=== PATIENT | female | born 1940 | race Caucasian/White ===

== ENCOUNTER → 2017-12-23 | Outpatient (CLI) | payer OTHER ==
[~2017-12-23] MED LIST: AMLO5TAB2 PO; ASPI-1181 PO; BISOPROL PO; ESTR0.5T; FENO145T37 PO; FURO20TA4 PO; LANS15CA17 PO; LEVO50TA11 PO; LOSA50TA37 PO; POTA10CA44 PO; PRAMPEXOLE PO; PRAV80TA21 PO; [UNRECOGNIZED DRUG - OTHER] PO
== END ==
LOC: RAH 14:29
PROVIDERS: ATTEND Internal Medicine Cardiovascular Disease
DX: M71.21 Synovial cyst of popliteal space [Baker], right knee (principal)
CPT/HCPCS: 93970

== ENCOUNTER → 2017-12-26 | Outpatient (CLI) | payer OTHER ==
[~2017-12-26] MED LIST changes: +REGADENOSON 0.4 MG/5 ML PF SYG IVP SCH
== END | disposition home or self-care (01) ==
LOC: SHCH 09:27
PROVIDERS: ATTEND Internal Medicine Cardiovascular Disease
DX: Z01.810 Encounter for preprocedural cardiovascular examination (principal); I25.10 Atherosclerotic heart disease of native coronary artery without angina pectoris; I10 Essential (primary) hypertension; I63.9 Cerebral infarction, unspecified
CPT/HCPCS: 78452; 93017; 93306; 96374; A9500 ×2; J2785

== ENCOUNTER → 2017-12-30 | Outpatient (CLI) | payer OTHER ==
[~2017-12-30] MED LIST changes: -REGADENOSON 0.4 MG/5 ML PF SYG IVP SCH
== END ==
LOC: RAH 09:35
PROVIDERS: ATTEND Physician Assistant Medical
DX: M41.84 Other forms of scoliosis, thoracic region (principal)
CPT/HCPCS: 71046

== ENCOUNTER 2018-01-09 11:50 | Day surgery (SDC) | payer OTHER ==
[2018-01-07 16:35] VITALS: BP 160/74
[~2018-01-09] VITALS: Ht 166.4 cm; Wt 75.3 kg
[2018-01-09] VITALS (15 sets, daily range): BP systolic 96–154; BP diastolic 41–75
[2018-01-09] MEDS ORDERED: LACTATED RINGERS 1000ML 1,000 ML IV ONE (12:08)
[2018-01-09] MEDS ORDERED: LIDOCAINE PF 2% 5ML ABBOJECT ONE (13:11)
[2018-01-09] MEDS ORDERED: PROPOFOL 10 MG/ML 20ML VIAL IV ONE (13:12)
[2018-01-09] MEDS ORDERED: MIDAZOLAM HCL 1 MG/ML 2ML VIAL ONE (13:12)
[2018-01-09] MEDS ORDERED: FENTANYL CITRATE PF 50 MCG/1 ML 2ML VIAL ONE (13:12)
[2018-01-09] MEDS ORDERED: BUPIVACAINE/PF 0.5% 30ML VIAL ONE (13:32)
[2018-01-09] MEDS ORDERED: EPINEPHRINE 1 MG/ML AMPULE ONE (13:32)
[2018-01-09] MEDS ORDERED: MEPERIDINE-PF 50 MG/ML SYG ONE (14:21)
[2018-01-09] MEDS ORDERED: KETOROLAC TROMETHAMINE 30MG/ML ONE (14:40)
[2018-01-09] MEDS ORDERED: OXYCODONE/ACETAMIN 5/325MG TAB PO PRN ×2 (16:00→16:15)
== END 2018-01-09 16:30 | disposition home or self-care (01) ==
LOC: DAH 11:50
PROVIDERS: ATTEND Orthopaedic Surgery Adult Reconstructive Orthopaedic Surgery
DX: S82.61XA Displaced fracture of lateral malleolus of right fibula, initial encounter for closed fracture (principal); X58.XXXA Exposure to other specified factors, initial encounter; Y93.89 Activity, other specified; Y92.89 Other specified places as the place of occurrence of the external cause; Y99.8 Other external cause status; E78.00 Pure hypercholesterolemia, unspecified; I10 Essential (primary) hypertension; G43.909 Migraine, unspecified, not intractable, without status migrainosus; M06.9 Rheumatoid arthritis, unspecified; Z85.818 Personal history of malignant neoplasm of other sites of lip, oral cavity, and pharynx
CPT/HCPCS: 27792; 36415; 73600; 73610; 85730; A4649 ×3; A4930 ×2; A6223; C1713 ×6; C1776; J0171; J1885; J2001; J2175; J2250; J2704; J3010; J3490; J7030; J7120; Q4050

== ENCOUNTER 2018-01-15 17:10 | Emergency (ER) | payer OTHER ==
[2018-01-15] MEDS ORDERED: HYDROCODONE/ACETAMINOPHEN 10/325 MG TAB ONE (19:18)
== END 2018-01-15 19:22 | disposition home or self-care (01) ==
LOC: EDH 17:10
DX: G89.18 Other acute postprocedural pain (principal); M25.571 Pain in right ankle and joints of right foot; R60.0 Localized edema; I10 Essential (primary) hypertension; M19.90 Unspecified osteoarthritis, unspecified site; Z85.828 Personal history of other malignant neoplasm of skin; Z87.891 Personal history of nicotine dependence
CPT/HCPCS: 73610; 93970

== ENCOUNTER → 2018-08-08 | Outpatient (CLI) | payer OTHER ==
[~2018-08-08] MED LIST changes: -AMLO5TAB2 PO; +AMLO5TAB7 PO; +LOSA50TA25 PO; -LOSA50TA37 PO
== END | disposition home or self-care (01) ==
LOC: RAH 09:35
PROVIDERS: ATTEND Internal Medicine Gastroenterology
DX: R13.10 Dysphagia, unspecified (principal); R49.9 Unspecified voice and resonance disorder
CPT/HCPCS: 74240

== ENCOUNTER → 2018-11-28 | Outpatient (CLI) | payer OTHER ==
[~2018-11-28] MED LIST changes: -AMLO5TAB7 PO; +AMLO5TAB9 PO; -LOSA50TA25 PO; +LOSA50TA64 PO
== END | disposition home or self-care (01) ==
LOC: RAH 15:51
PROVIDERS: ATTEND Internal Medicine Critical Care Medicine
DX: M47.812 Spondylosis without myelopathy or radiculopathy, cervical region (principal)
CPT/HCPCS: 72040

== ENCOUNTER → 2019-01-21 | Outpatient (CLI) | payer OTHER | END | disposition home or self-care (01) | LOC: RAH 13:47 | PROVIDERS: ATTEND Internal Medicine Critical Care Medicine | DX: M47.26 Other spondylosis with radiculopathy, lumbar region (principal); M48.061 Spinal stenosis, lumbar region without neurogenic claudication; M51.36 Other intervertebral disc degeneration, lumbar region | CPT/HCPCS: 72141 ==

== ENCOUNTER → 2019-05-13 | Outpatient (CLI) | payer OTHER | END | disposition home or self-care (01) | LOC: SHCH 10:05 | PROVIDERS: ATTEND Internal Medicine Cardiovascular Disease | DX: I65.23 Occlusion and stenosis of bilateral carotid arteries (principal); E78.00 Pure hypercholesterolemia, unspecified; I10 Essential (primary) hypertension | CPT/HCPCS: 93880; 93925 ==

== ENCOUNTER → 2020-04-07 | Outpatient (CLI) | payer OTHER ==
[~2020-04-07] MED LIST changes: +FENO145T26 PO; -FENO145T37 PO
== END | disposition home or self-care (01) ==
LOC: RAH 10:37
PROVIDERS: ATTEND Emergency Medicine
DX: K80.80 Other cholelithiasis without obstruction (principal)
CPT/HCPCS: 78226; A9537

== ENCOUNTER 2020-05-18 06:16 | Day surgery (SDC) | payer OTHER ==
[2020-05-17 10:09] VITALS: BP 169/72; PULSE 60; RESP 16; TEMP 97.2
--- NOTE | 2020-05-17 12:01 | NUR ---
report called dr yancey's office and informed of abnormal labs was instructed to fax and md martinez reveiw and call if any new orders. labs faxed to
[2020-05-18] VITALS (22 sets, daily range): BP systolic 111–145; BP diastolic 53–89; PULSE 63–77; RESP 13–18; TEMP 97.3–98.2
[~2020-05-18] VITALS: Ht 167.6 cm; Wt 73.3 kg
[~2020-05-18 06:16] MED LIST changes: -AMLO5TAB9 PO; -ASPI-1181 PO; -BISOPROL PO; +CEFAZOLIN SODIUM 1 GM VIAL IVP SCH; -ESTR0.5T; -FENO145T26 PO; -FURO20TA4 PO; -LANS15CA17 PO; -LEVO50TA11 PO; -LOSA50TA64 PO; -POTA10CA44 PO; -PRAMPEXOLE PO; -PRAV80TA21 PO; -[UNRECOGNIZED DRUG - OTHER] PO
[2020-05-18] MEDS ORDERED: SODIUM CHLORIDE 0.9% 1000ML 1,000 ML IV ONE (06:22)
[2020-05-18] MEDS ORDERED: BUPIVACAINE/EPI/PF 0.5% 30ML VIAL IJ ONE (07:12)
[2020-05-18] MEDS ORDERED: SUCCINYLCHOLINE CHLORIDE 20 MG/ML 10 ML VIAL ONE (07:16)
[2020-05-18] MEDS ORDERED: LIDOCAINE PF 2% 5ML ABBOJECT ONE (07:16)
[2020-05-18] MEDS ORDERED: ROCURONIUM 10MG/1ML SYR 10 MG/ML ML ONE (07:16)
[2020-05-18] MEDS ORDERED: PROPOFOL 10 MG/ML 20ML VIAL IV ONE (07:16)
[2020-05-18] MEDS ORDERED: FENTANYL CITRATE PF 50 MCG/1 ML 2ML VIAL ONE (07:16)
[2020-05-18] MEDS ORDERED: PHENYLEPHRINE HCL 10 MG/ML 1ML VIAL IV ONE (07:17)
[2020-05-18] MEDS ORDERED: KETAMINE 50MG/ML SYRINGE 50 MG/ML DISP.SYRIN IV ONE (07:22)
[2020-05-18] MEDS ORDERED: DEXAMETHASONE SOD PHOSPHATE 10MG/ML 1ML VIAL ONE (07:53)
[2020-05-18] MEDS ORDERED: ONDANSETRON HCL 4 MG/2 ML VIAL ONE (07:53)
[2020-05-18] MEDS ORDERED: NEOSTIGMINE 5MG/5ML SYR IV ONE (07:54)
[2020-05-18] MEDS ORDERED: GLYCOPYRROLATE 1 MG/5 ML SYRINGE ONE (07:54)
[2020-05-18] MEDS ORDERED: IOHEXOL-350 50ML VIAL IV ONE (07:55)
[2020-05-18] MEDS ORDERED: EPHEDRINE SULFATE 50 MG/ML AMPULE ONE (08:00)
[2020-05-18] MEDS ORDERED: MEPERIDINE-PF 25 MG/ML SYG ONE ×2 (09:00→09:09)
[2020-05-18] MEDS ORDERED: TRAMADOL HCL 50 MG TABLET PO SCH (10:30)
[2020-05-18] MEDS ORDERED: TRAMADOL HCL 50 MG TABLET ONE (10:33)
== END 2020-05-18 11:20 | disposition home or self-care (01) ==
LOC: DAH 06:16
PROVIDERS: ATTEND Surgery
DX: K80.10 Calculus of gallbladder with chronic cholecystitis without obstruction (principal); K82.8 Other specified diseases of gallbladder; I10 Essential (primary) hypertension; M19.90 Unspecified osteoarthritis, unspecified site; E78.00 Pure hypercholesterolemia, unspecified; E78.5 Hyperlipidemia, unspecified; I34.0 Nonrheumatic mitral (valve) insufficiency; Z85.43 Personal history of malignant neoplasm of ovary; Z86.79 Personal history of other diseases of the circulatory system; Z79.899 Other long term (current) drug therapy; Z88.8 Allergy status to other drugs, medicaments and biological substances; Z87.891 Personal history of nicotine dependence; Z98.890 Other specified postprocedural states; Z90.49 Acquired absence of other specified parts of digestive tract; Z90.710 Acquired absence of both cervix and uterus; Z98.51 Tubal ligation status; Z79.890 Hormone replacement therapy; Z11.59 Encounter for screening for other viral diseases
CPT/HCPCS: 36415; 47563; 74300; 80048; 85025; 88304; A4215 ×2; A4221; A4222; A4223; A4600; A4649 ×3; A4657; A4663; A4930; A6260; C1758; C1769 ×4; G0168; J0330; J0690; J1100; J2001; J2175 ×2; J2370; J2405; J2704; J2710; J3010; J3490 ×4; J7030 ×3; Q9967; U0003

== ENCOUNTER → 2020-08-09 | Outpatient (CLI) | payer OTHER ==
[~2020-08-09] MED LIST changes: +ACET-2027 PO; +AMLO5TAB9 PO; +ASPI-1443 PO; +ATOR10 PO; +BISO5TAB19 PO; +CALC-933 PO; -CEFAZOLIN SODIUM 1 GM VIAL IVP SCH; +CROM40SP12 NS; +ESTR0.5T; +FENO145T26 PO; +FEXO1TAB5 PO; +GLUC-268 PO; +LEVO50TA11 PO; +LOSA50TA64 PO; +MV-M1TAB57 PO; +OMEP20CA12 PO; +POLY500P31 MC; +POTA10CA44 PO; +TIZA2CAP9 PO; +UBID50CA23 PO; +[UNRECOGNIZED DRUG - OTHER] PO; +tumeric
== END | disposition home or self-care (01) ==
LOC: SHCH 11:31
PROVIDERS: ATTEND Internal Medicine Cardiovascular Disease
DX: I10 Essential (primary) hypertension (principal)
CPT/HCPCS: 93306; 93356

== ENCOUNTER → 2020-09-23 | Outpatient (CLI) | payer OTHER ==
[~2020-09-23] MED LIST changes: +AMLO-257 PO; -AMLO5TAB9 PO
== END | disposition home or self-care (01) ==
LOC: RAH 10:59
PROVIDERS: ATTEND Emergency Medicine
DX: N64.52 Nipple discharge (principal); N64.4 Mastodynia; R92.8 Other abnormal and inconclusive findings on diagnostic imaging of breast
CPT/HCPCS: 77066

== ENCOUNTER 2022-02-12 09:41 | Day surgery (SDC) | payer OTHER ==
[2022-02-08 14:15] VITALS: BP_SYST 200; BP_SYST 213; BP_DIAS 78; BP_DIAS 83
[2022-02-08 14:27] LABS: EOSINOPHILS % (AUTO) 4.4 % (0.0-8.0); HEMATOCRIT 39.8 % (36-48); LYMPHOCYTES % (AUTO) 25.8 % (21.0-51.0); MEAN CORPUSCULAR HEMOGLOBIN 31.5 pg (27.0-33.0); MEAN CORPUSCULAR HGB CONC 32.2 g/dL (32.0-36.0); MONOCYTES % (AUTO) 8.6 % (3.0-13.0); NEUTROPHILS % (AUTO) 59.9 % (40.0-77.0); PLATELET COUNT (AUTO) 229 K/uL (130-400); RED BLOOD CELL COUNT(AUTO) 4.06 MIL/uL (4.00-5.50); WHITE BLOOD COUNT (AUTO) 5.9 K/uL (4.8-10.8)
[2022-02-08 14:28] LABS: APPEARANCE,URINE Clear (CLEAR); BILIRUBIN,URINE Negative (NEGATIVE); COLOR,URINE Yellow (YELLOW); GLUCOSE, URINE (UA) Negative (NEGATIVE); KETONES,URINE Negative (NEGATIVE); LEUKOCYTE ESTERASE ,URINE Trace (NEGATIVE); NITRATE,URINE Negative (NEGATIVE); OCCULT BLOOD,URINE Negative (NEGATIVE); PH,URINE 7.5 (5.0-8.0); PROTEIN,URINE Negative (NEGATIVE); UROBILINOGEN,URINE 0.2 mg/dL (0.2-1.0)
[2022-02-08 14:36] LABS: POTASSIUM 3.5 mmol/L (3.5-5.1)
[2022-02-08 14:40] LABS: INR 1.05 (0.85-1.15); PROTHROMBIN TIME 11.4 SEC (9.6-11.6)
[2022-02-08 14:41] LABS: PARTIAL THROMBOPLASTIN TIME 26.2 SEC (26.3-35.5)
[2022-02-08 14:42] LABS: BACTERIA,URINE Few /HPF (None Seen); RBC,URINE 0-1 /HPF (0-1); SQUAMOUS EPITHELIAL CELL,UR Rare /HPF (0-2)
[~2022-02-12] VITALS: Ht 166.4 cm; Wt 74.8 kg
[2022-02-12] VITALS (10 sets, daily range): BP systolic 130–207; BP diastolic 57–88
[~2022-02-12 09:41] MED LIST changes: +0.9%NACL 1000ML 1,000 ML IV SCH; +CILO50TA PO; -CROM40SP12 NS; -ESTR0.5T; +ESTR0.5T PO; -FEXO1TAB5 PO; +FLUT16H NS; +MAGN200T4 PO; -POTA10CA44 PO; +TRAM50TA4 PO; +TUMERIC CURCUMIN PO; -tumeric
[2022-02-12] MEDS ORDERED: LIDOCAINE HCL 400MG/20ML VIAL ONE (11:38)
[2022-02-12] MEDS ORDERED: HEPARIN 10,000 UNIT/10ML (1,000 UNIT/ML) VIAL ONE (11:44)
[2022-02-12] MEDS ORDERED: NICARDIPINE 25MG INJ IV ONE (11:44)
[2022-02-12] MEDS ORDERED: NITROGLYCERIN 50MG VIAL ONE (11:44)
[2022-02-12] MEDS ORDERED: IODIXANOL 320 MG/ML 100 ML VIAL ONE (11:44)
[2022-02-12] MEDS ORDERED: FENTANYL CITRATE PF 50 MCG/1 ML 2ML VIAL ONE ×2 (11:45→13:04)
[2022-02-12] MEDS ORDERED: MIDAZOLAM HCL 1 MG/ML 2ML VIAL ONE ×2 (11:45→12:30)
[2022-02-12] MEDS ORDERED: LABETALOL 20MG VIAL IV ONE (13:09)
[2022-02-12] MEDS ORDERED: 0.9%NACL 1000ML 1,000 ML IV SCH (13:30)
[2022-02-12] MEDS ORDERED: DEXTROSE 50%-WATER 50 ML DISP.SYRIN IV PRN (13:30)
[2022-02-12] MEDS ORDERED: GLUCAGON 1MG KIT 1 MG ML IM PRN (13:30)
[2022-02-12] MEDS ORDERED: NITROGLYCERIN 0.4 MG SL TAB SL PRN (13:30)
[2022-02-12] MEDS ORDERED: CLOPIDOGREL 300MG TAB ONE (13:36)
== END 2022-02-12 18:40 | disposition home or self-care (01) ==
LOC: DAH 09:41
PROVIDERS: ATTEND Internal Medicine Cardiovascular Disease
DX: I70.213 Atherosclerosis of native arteries of extremities with intermittent claudication, bilateral legs (principal); I10 Essential (primary) hypertension; Z79.01 Long term (current) use of anticoagulants; Z98.890 Other specified postprocedural states; Z79.899 Other long term (current) drug therapy
CPT/HCPCS: 36415; 37226; 75625; 75716; 75774; 80048; 81001; 85025; 85610; 85730; 93005; A4215; A4216; A4221; A4222; A4223 ×3; A4606; A4663; C1769 ×2; C1876; C1887; C1893; C1894 ×2; C2623; J1644 ×2; J2250 ×2; J3010; J3490 ×3; J7030; Q9967; 99156; 99157

== ENCOUNTER 2022-02-13 22:47 | Emergency (ER) | payer OTHER ==
[~2022-02-13] VITALS: Ht 165.1 cm; Wt 74.8 kg
[~2022-02-13 22:47] MED LIST changes: -0.9%NACL 1000ML 1,000 ML IV SCH
[2022-02-13 23:31] LABS: BASOPHILS % (AUTO) 0.6 % (0.0-5.0); EOSINOPHILS % (AUTO) 3.4 % (0.0-8.0); HEMATOCRIT 33.6 % (36-48); LYMPHOCYTES % (AUTO) 20.2 % (21.0-51.0); MEAN CORPUSCULAR HEMOGLOBIN 31.8 pg (27.0-33.0); MEAN CORPUSCULAR HGB CONC 32.7 g/dL (32.0-36.0); MEAN CORPUSCULAR VOLUME 97.1 fL (79-99); MONOCYTES % (AUTO) 10.5 % (3.0-13.0); NEUTROPHILS % (AUTO) 64.9 % (40.0-77.0); PLATELET COUNT (AUTO) 190 K/uL (130-400); RED BLOOD CELL COUNT(AUTO) 3.46 MIL/uL (4.00-5.50); RED CELL DISTRIBUTION WIDTH 13.3 % (11.0-15.5); WHITE BLOOD COUNT (AUTO) 6.7 K/uL (4.8-10.8)
[2022-02-13 23:39] LABS: POTASSIUM 3.8 mmol/L (3.5-5.1)
[2022-02-13 23:44] LABS: ALBUMIN 3.8 g/dL (3.5-5.0); BILIRUBIN,TOTAL 0.5 mg/dL (0.2-1.0); TOTAL PROTEIN, SERUM 7.2 g/dL (6.0-8.3)
[2022-02-14 00:22] VITALS: BP 148/66
== END 2022-02-14 02:46 | disposition home or self-care (01) ==
LOC: EDH 22:47
DX: S30.1XXA Contusion of abdominal wall, initial encounter (principal); R10.31 Right lower quadrant pain; E78.00 Pure hypercholesterolemia, unspecified; I10 Essential (primary) hypertension; Z88.8 Allergy status to other drugs, medicaments and biological substances; Z79.899 Other long term (current) drug therapy; Z79.82 Long term (current) use of aspirin; Z98.890 Other specified postprocedural states; X58.XXXA Exposure to other specified factors, initial encounter; Y93.89 Activity, other specified; Y92.89 Other specified places as the place of occurrence of the external cause; Y99.8 Other external cause status
CPT/HCPCS: 36415; 74176; 80053; 84484; 85025

== ENCOUNTER 2022-04-19 06:52 | Day surgery (SDC) | payer OTHER ==
[2022-04-17 13:30] LABS: BASOPHILS % (AUTO) 1.1 % (0.0-5.0); EOSINOPHILS % (AUTO) 4.8 % (0.0-8.0); HEMATOCRIT 37.8 % (36-48); LYMPHOCYTES % (AUTO) 18.1 % (21.0-51.0); MEAN CORPUSCULAR HEMOGLOBIN 31.2 pg (27.0-33.0); MEAN CORPUSCULAR HGB CONC 32.8 g/dL (32.0-36.0); MEAN CORPUSCULAR VOLUME 95.2 fL (79-99); MONOCYTES % (AUTO) 10.7 % (3.0-13.0); NEUTROPHILS % (AUTO) 64.9 % (40.0-77.0); PLATELET COUNT (AUTO) 228 K/uL (130-400); RED BLOOD CELL COUNT(AUTO) 3.97 MIL/uL (4.00-5.50); WHITE BLOOD COUNT (AUTO) 5.6 K/uL (4.8-10.8)
[2022-04-17 13:40] LABS: POTASSIUM 4.7 mmol/L (3.5-5.1)
[2022-04-17 13:42] LABS: INR 0.99 (0.85-1.15); PROTHROMBIN TIME 10.8 SEC (9.6-11.6)
[2022-04-17 13:42] LABS: APPEARANCE,URINE Cloudy (CLEAR); BILIRUBIN,URINE Negative (NEGATIVE); COLOR,URINE Yellow (YELLOW); GLUCOSE, URINE (UA) Negative (NEGATIVE); KETONES,URINE Negative (NEGATIVE); LEUKOCYTE ESTERASE ,URINE Moderate (NEGATIVE); NITRATE,URINE Negative (NEGATIVE); OCCULT BLOOD,URINE Negative (NEGATIVE); PH,URINE 7.5 (5.0-8.0); PROTEIN,URINE Negative (NEGATIVE)
[2022-04-17 13:43] LABS: PARTIAL THROMBOPLASTIN TIME 24.5 SEC (26.3-35.5)
[2022-04-17 14:11] LABS: BACTERIA,URINE Many /HPF (None Seen); RBC,URINE None Seen /HPF (0-1)
[2022-04-17 14:16] LABS: B-TYPE NATRIURETIC PEPTIDE 233 pg/mL (0-100)
[2022-04-19] VITALS (17 sets, daily range): BP systolic 88–197; BP diastolic 44–90
[~2022-04-19] VITALS: Ht 165.1 cm; Wt 75.4 kg
[~2022-04-19 06:52] MED LIST changes: +0.9% NACL 500ML IV.SOLN 500 ML IV SCH; -ACET-2027 PO; -ATOR10 PO; -CILO50TA PO; +CLOP75TA14 PO; -ESTR0.5T PO; +ESTR1PAT87 TD; -FLUT16H NS; -GLUC-268 PO; +MULT-1192 PO; +NABU-143 PO; -POLY500P31 MC; -TUMERIC CURCUMIN PO; -UBID50CA23 PO; -[UNRECOGNIZED DRUG - OTHER] PO; +tylenol PO
[2022-04-19] MEDS ORDERED: 0.9%NACL 1000ML 1,000 ML IV ONE (08:14)
[2022-04-19] MEDS ORDERED: NITROGLYCERIN 50MG VIAL ONE (08:31)
[2022-04-19] MEDS ORDERED: MIDAZOLAM HCL 1 MG/ML 2ML VIAL ONE ×2 (08:31→09:19)
[2022-04-19] MEDS ORDERED: IOHEXOL 350 MG/ML 100ML INFUS..BTL IV ONE (08:31)
[2022-04-19] MEDS ORDERED: BIVALIRUDIN 250 MG/VIAL IV ONE (08:31)
[2022-04-19] MEDS ORDERED: FENTANYL CITRATE PF 50 MCG/1 ML 2ML VIAL ONE ×2 (08:31→09:45)
[2022-04-19] MEDS ORDERED: LIDOCAINE HCL 400MG/20ML VIAL ONE (08:32)
[2022-04-19] MEDS ORDERED: HEPARIN 10,000 UNIT/10ML (1,000 UNIT/ML) VIAL ONE (08:51)
[2022-04-19] MEDS ORDERED: ASPIRIN 81 MG EC TAB PO SCH (09:00)
[2022-04-19] MEDS ORDERED: CLOPIDOGREL 75MG TAB PO SCH (09:00)
[2022-04-19] MEDS ORDERED: IOHEXOL-350 75 ML VIAL IV ONE (09:56)
[2022-04-19] MEDS ORDERED: HYDRALAZINE 20MG/ML VIAL IV PRN (11:00)
[2022-04-19] MEDS ORDERED: 0.9%NACL 1000ML 1,000 ML IV SCH (11:00)
[2022-04-19] MEDS ORDERED: ACETAMINOPHEN WITH CODEINE 1 TAB TAB PO PRN (11:00)
[2022-04-19] MEDS ORDERED: DEXTROSE 50%-WATER 50 ML DISP.SYRIN IV PRN (11:00)
[2022-04-19] MEDS ORDERED: GLUCAGON 1MG KIT 1 MG ML IM PRN (11:00)
[2022-04-19] MEDS ORDERED: NITROGLYCERIN 0.4 MG SL TAB SL PRN (11:00)
[2022-04-19] MEDS ORDERED: METOPROLOL TARTRATE 1 MG/ML 5ML VIAL IV PRN (11:00)
== END 2022-04-19 17:00 | disposition home or self-care (01) ==
LOC: DAH 06:52
PROVIDERS: ATTEND Internal Medicine Cardiovascular Disease
DX: I70.211 Atherosclerosis of native arteries of extremities with intermittent claudication, right leg (principal); I25.119 Atherosclerotic heart disease of native coronary artery with unspecified angina pectoris; I34.0 Nonrheumatic mitral (valve) insufficiency; I10 Essential (primary) hypertension; E66.3 Overweight; E03.9 Hypothyroidism, unspecified; E78.5 Hyperlipidemia, unspecified; Z68.26 Body mass index [BMI] 26.0-26.9, adult; Z90.49 Acquired absence of other specified parts of digestive tract; Z90.710 Acquired absence of both cervix and uterus; Z90.89 Acquired absence of other organs; Z98.890 Other specified postprocedural states; Z72.89 Other problems related to lifestyle; Z79.899 Other long term (current) drug therapy; Z79.82 Long term (current) use of aspirin; Z79.01 Long term (current) use of anticoagulants
CPT/HCPCS: 36415; 37227; 75710; 75774; 80048; 81001; 82948; 83880; 85025; 85610; 85730; 87077; 87088; 87186; A4215; A4216; A4221; A4222; A4223 ×3; A4606; A4663; C1724; C1769 ×2; C1876; C1887; C1893; C1894 ×2; C2623; J0360 ×2; J0583; J1644 ×2; J2250 ×2; J3010 ×2; J3490 ×2; J7030; Q9967 ×2; 96360; 96361; 99156; 99157

== ENCOUNTER → 2022-06-26 | Outpatient (CLI) | payer OTHER ==
[~2022-06-26] MED LIST changes: -0.9% NACL 500ML IV.SOLN 500 ML IV SCH; -ASPI-1443 PO
== END | disposition home or self-care (01) ==
LOC: SHCH 13:38
PROVIDERS: ATTEND Internal Medicine Cardiovascular Disease
DX: I73.9 Peripheral vascular disease, unspecified (principal); I87.2 Venous insufficiency (chronic) (peripheral)
CPT/HCPCS: 93925; 93970

== ENCOUNTER 2023-07-02 18:15 | Emergency (ER) | payer OTHER ==
[~2023-07-02] VITALS: Ht 165.1 cm; Wt 74.8 kg
[~2023-07-02 18:15] MED LIST changes: +AEC81 PO; +ATOR40TA69 PO; -BISO5TAB19 PO; +CLOP-31 PO; -CLOP75TA14 PO; +GLUC-29 PO; +HYDR25 PO; +ISOS10TA8 PO; +LACT1CAP78 PO; +LEVO50CA4 PO; -LEVO50TA11 PO; +METO50TA9 PO; -NABU-143 PO; +NITR0.4T50 SL; +PRED20TA3 PO; +PREVAGEN; -TRAM50TA4 PO; +TUMERIC; +UBID200C18 PO; +VIT D; +[UNRECOGNIZED DRUG - OTHER]; +[UNRECOGNIZED DRUG - OTHER]; -tylenol PO
[2023-07-02 18:29] VITALS: BP 161/88; PULSE 65; RESP 16; O2SAT 96
[2023-07-02] MEDS ORDERED: ASPIRIN 325MG TAB PO ONE (23:30)
[2023-07-04] MEDS ORDERED: FLUT50BL IH (19:00)
[2023-07-04] MEDS ORDERED: MECO10005 PO (19:02)
[2023-07-05] MEDS ORDERED: UBID200C18 PO (01:26)
[2023-07-05] MEDS ORDERED: HYDR-4153 PO (01:26)
[2023-07-05] MEDS ORDERED: ATOR40TA71 PO (01:26)
[2023-07-05] MEDS ORDERED: TRAM50TA4 PO (01:26)
== END 2023-07-02 23:54 | disposition home or self-care (01) ==
LOC: EDH 18:15
DX: I73.9 Peripheral vascular disease, unspecified (principal); E78.00 Pure hypercholesterolemia, unspecified; I10 Essential (primary) hypertension; Z79.02 Long term (current) use of antithrombotics/antiplatelets; Z79.52 Long term (current) use of systemic steroids; Z79.82 Long term (current) use of aspirin; Z79.890 Hormone replacement therapy; Z79.899 Other long term (current) drug therapy; Z88.8 Allergy status to other drugs, medicaments and biological substances; Z90.49 Acquired absence of other specified parts of digestive tract
CPT/HCPCS: 99282

== ENCOUNTER → 2023-08-27 | Outpatient (CLI) | payer OTHER ==
[~2023-08-27] MED LIST changes: +ATOR40TA71 PO; +FLUT50BL IH; +HYDR-4153 PO; -HYDR25 PO; +MECO10005 PO; -PRED20TA3 PO; +TRAM50TA4 PO; -TUMERIC
[2023-08-27 16:45] LABS: CREATININE 0.9 mg/dL (0.5-1.5); POTASSIUM 3.7 mmol/L (3.5-5.1)
== END | disposition home or self-care (01) ==
LOC: LAB 11:47
PROVIDERS: ATTEND Internal Medicine Cardiovascular Disease
DX: I10 Essential (primary) hypertension (principal)
CPT/HCPCS: 36415; 80048

== ENCOUNTER → 2023-08-31 | Outpatient (CLI) | payer OTHER | END | disposition home or self-care (01) | LOC: SHCH 12:57 | PROVIDERS: ATTEND Internal Medicine Cardiovascular Disease | DX: I87.2 Venous insufficiency (chronic) (peripheral) (principal); I73.9 Peripheral vascular disease, unspecified | CPT/HCPCS: 93925; 93970 ==

== ENCOUNTER → 2023-09-19 | Outpatient (CLI) | payer OTHER ==
[~2023-09-19] MED LIST changes: +IOHEXOL 350 MG/ML 100ML INFUS..BTL IV ONE; +METOPROLOL TARTRATE 1 MG/ML 5ML VIAL IV ONE
== END | disposition home or self-care (01) ==
LOC: RAH 08:57
PROVIDERS: ATTEND Internal Medicine Cardiovascular Disease
DX: I25.119 Atherosclerotic heart disease of native coronary artery with unspecified angina pectoris (principal); R94.31 Abnormal electrocardiogram [ECG] [EKG]
CPT/HCPCS: 75574; J3490; Q9967

== ENCOUNTER → 2024-01-30 | Outpatient (CLI) | payer OTHER | END | disposition home or self-care (01) | LOC: RAH 09:52 | PROVIDERS: ATTEND Internal Medicine Cardiovascular Disease | DX: I73.9 Peripheral vascular disease, unspecified (principal); I87.2 Venous insufficiency (chronic) (peripheral); I10 Essential (primary) hypertension; E78.5 Hyperlipidemia, unspecified; R00.1 Bradycardia, unspecified; Z79.899 Other long term (current) drug therapy | CPT/HCPCS: 93925; 93970 ==

== ENCOUNTER → 2024-02-05 | Outpatient (CLI) | payer OTHER | END | disposition home or self-care (01) | LOC: RAH 12:49 | PROVIDERS: ATTEND Physician Assistant Medical | DX: L97.509 Non-pressure chronic ulcer of other part of unspecified foot with unspecified severity (principal) | CPT/HCPCS: 78315; A9503 ==

== ENCOUNTER → 2024-03-19 | Outpatient (CLI) | payer OTHER | END | disposition home or self-care (01) | LOC: SHCH 11:09 | PROVIDERS: ATTEND Internal Medicine Cardiovascular Disease | DX: I08.3 Combined rheumatic disorders of mitral, aortic and tricuspid valves (principal); I10 Essential (primary) hypertension; E78.5 Hyperlipidemia, unspecified; Z95.1 Presence of aortocoronary bypass graft | CPT/HCPCS: 93306 ==

== ENCOUNTER → 2024-06-01 | Outpatient (CLI) | payer OTHER | END | disposition home or self-care (01) | LOC: SHCH 09:04 | PROVIDERS: ATTEND Internal Medicine Cardiovascular Disease | DX: I70.202 Unspecified atherosclerosis of native arteries of extremities, left leg (principal) | CPT/HCPCS: 93925 ==

== ENCOUNTER → 2024-08-26 | Outpatient (CLI) | payer OTHER ==
[~2024-08-26] MED LIST changes: -AMLO-257 PO; +AMLO-258 PO; -ATOR40TA71 PO; +BISO5TAB19 PO; -CALC-933 PO; -CLOP-31 PO; +CLOP75TA32 PO; -ESTR1PAT87 TD; +FAMO20TA8 PO; -FENO145T26 PO; -FLUT50BL IH; +FURO40TA5 PO; -GLUC-29 PO; -HYDR-4153 PO; -IOHEXOL 350 MG/ML 100ML INFUS..BTL IV ONE; -ISOS10TA8 PO; +ISOS20TA85 PO; -LACT1CAP78 PO; -MAGN200T4 PO; -MECO10005 PO; +MELA5TAB66 PO; -METO50TA9 PO; -METOPROLOL TARTRATE 1 MG/ML 5ML VIAL IV ONE; -MULT-1192 PO; -MV-M1TAB57 PO; -NITR0.4T50 SL; -OMEP20CA12 PO; +PANT40GR PO; +POLY500P31 MC; +PREG50CA64 PO; -PREVAGEN; +ROPI1TAB46 PO; +TIZA-194 PO; -TIZA2CAP9 PO; -TRAM50TA4 PO; -UBID200C18 PO; -VIT D; +VITAD50000 PO; -[UNRECOGNIZED DRUG - OTHER]; -[UNRECOGNIZED DRUG - OTHER]
== END | disposition home or self-care (01) ==
LOC: SHCH 09:51
PROVIDERS: ATTEND Internal Medicine Cardiovascular Disease
DX: I73.9 Peripheral vascular disease, unspecified (principal); I71.40 Abdominal aortic aneurysm, without rupture, unspecified
CPT/HCPCS: 93925; 93978

== ENCOUNTER 2024-11-16 14:07 | Emergency (ER) | payer OTHER ==
[~2024-11-16] VITALS: Ht 160 cm; Wt 77.1 kg
[~2024-11-16 14:07] MED LIST changes: +ISOS-58 PO; -ISOS20TA85 PO
--- NOTE | 2024-11-16 14:40 | ERN ---
ED Note History of Present Illness Stated Complaint: LEFT LEG PAIN Chief Complaint: Lower Extremity Pain/Injury Time Seen by MD: 14:18 Dictation: PATIENT IS AN 84-YEAR-OLD FEMALE COMING IN TODAY WITH COMPLAINTS OF HAVING CLAUDICATION AND LEFT CALF PAIN SHE HAS HAD FOR 3-4 DAYS. SHE STATES IT IS WORSE WHEN SHE WALKS SEVERAL STEPS. STATES SHE HAS ALREADY HAD PRIOR STENTS AND ANGIOPLASTY LAST STENT WAS PLACED BY DR. FELDMAN LAST YEAR. LEG IS WARM TO TOUCH HOWEVER DISTAL PULSES NOT PALPABLE AT THIS TIME. NO CYANOSIS Allergies: Coded Allergies: MARCOS Inhibitors (Unverified Allergy, Mild, cough, 05/17/20) gabapentin (Unverified Allergy, Unknown, 01/19/23) Home Meds Active Scripts Apixaban (Eliquis) 2.5 Mg Tablet, 1 TAB PO BID for 30 Days, #60 TAB 0 Refills Prov:SUHA HERNANDEZ 11/20/24 Furosemide (Furosemide) 40 Mg Tablet, 40 MG PO DAILY, #30 TAB Prov:RYLEE ESCOBAR MD 08/19/24 Losartan Potassium (Losartan Potassium) 50 Mg Tablet, 50 MG PO DAILY, #30 TAB Prov:RYLEE ESCOBAR MD 08/19/24 Reported Medications Polyethylene Glycol 3350 (Miralax) 17 Gram Powd.pack, 1 PACKET PO DAILY for constipation for 2 Days, #2 PACKET 0 Refills dissolve in water 11/18/24 Hydralazine HCl (Apresoline) 10 Mg Tab, 10 MG PO DAILYDINNER 11/18/24 Metoprolol Succinate (Metoprolol Succinate) 25 Mg Tab.er.24h, 12.5 MG PO DAILY 11/18/24 Fenofibrate Nanocrystallized (Fenofibrate) 48 Mg Tablet, 1 TAB PO DAILYDINNER for 30 Days, #30 TAB 0 Refills 11/18/24 Ropinirole HCl (Ropinirole HCl) 1 Mg Tablet, 1 TAB PO BID for 30 Days, #30 TAB 0 Refills 11/18/24 Melatonin (Melatonin) 5 Mg Tablet, 15 MG PO HSPRN PRN for SLEEP, TAB 08/15/24 Tizanidine HCl (Tizanidine HCl) 2 Mg Tablet, 2 MG PO HS, TAB 08/14/24 Cholecalciferol (Vitamin D3) 1,250 Mcg (89618 Unit) Cap, 22577 UNITS PO QWEEK, CAP Fridays08/14/24 Famotidine (Famotidine) 20 Mg Tablet, 20 MG PO DAILYDINNER, TAB 08/14/24 Aspirin (ASPIRIN 81 MG ECTAB) 81 Mg Ectab, 81 MG PO DAILYDINNER, TAB.EC 08/14/24 Amlodipine Besylate (Amlodipine Besylate) 10 Mg Tablet, 10 MG PO DAILY for 30 Days, #30 TAB 0 Refills 08/14/24 Isosorbide Mononitrate (Isosorbide Mononitrate) 20 Mg Tablet, 20 MG PO BID, TAB 08/14/24 Clopidogrel Bisulfate (Clopidogrel) 75 Mg Tablet, 75 MG PO PCBKFST, TAB 08/14/24 Atorvastatin Calcium (LIPITOR) 40 Mg Tablet, 40 MG PO PCBKFST, TAB 08/14/24 Pantoprazole Sodium (Pantoprazole Sodium) 40 Mg Granpkt.dr, 40 MG PO ACBKFST, PACK 08/14/24 Levothyroxine Sodium (Levothyroxine) 50 Mcg Capsule, 50 MCG PO ACBKFST, CAP 08/14/24 Discontinued Reported Medications Ropinirole HCl (Ropinirole HCl) 1 Mg Tablet, 1 MG PO ACBKFST, TAB 08/15/24 Polyethylene Glycol 8000 (Polyethylene Glycol) 100 % Powder, 500 GM MC DAILY, APPL 08/14/24 Bisoprolol Fumarate (Bisoprolol Fumarate) 5 Mg Tablet, 5 MG PO PCBKFST, TAB 08/14/24 Ropinirole HCl (Ropinirole HCl) 1 Mg Tablet, 1 MG PO HS, TAB 08/14/24 Pregabalin (Pregabalin) 50 Mg Capsule, 50 MG PO BIDAC, CAP 08/14/24 Past Medical History Past Medical History: A-Fib, CAD, Heart Disease, Hypertension Additional Past Medical Hx: AAA Surgical History: CABG Surgical History Other: TIED KINKED BOWEL / WISDON TEETH / WIRE INTO TWO HAMMER TOES, CATARAT NICKY Family History: Negative Social History: Smokers, Negative History: Not Applicable RN Note Reviewed/Agreed w/PFSH: Yes Review of System Dictation CONSTITUTIONAL: NEGATIVE EXCEPT FOR HPI HEAD/FACE: NEGATIVE EXCEPT FOR HPI EENT: NEGATIVE EXCEPT FOR HPI RESPIRATORY: NEGATIVE EXCEPT FOR HPI GASTROINTESTINAL/ABDOMINAL: NEGATIVE EXCEPT FOR HPI GENITOURINARY: NEGATIVE EXCEPT FOR HPI MUSCULOSKELETAL: NEGATIVE EXCEPT FOR HPI LEFT CALF PAIN WITH CLAUDICATION INTEGUMENTARY: NEGATIVE EXCEPT FOR HPI NEUROLOGICAL/PSYCH: NEGATIVE EXCEPT FOR HPI HEMATOLOGIC/LYMPHATIC: NEGATIVE EXCEPT FOR HPI ALL SYSTEMS NEGATIVE, EXCEPT NOTED ABOVE. 13 POINT REVIEW OF SYSTEMS ASSESSED AND ALL NEGATIVE EXCEPT FOR ABOVE. Initial Vital Sign VS Vital Signs Date Time Temp Pulse Resp B/P (MAP) Pulse Ox O2 Delivery O2 Flow Rate FiO2 11/16/24 14:09 97.3 59 16 156/64 97 Room Air 0 11/16/24 14:15 21 Physical Exam Dictation VITAL SIGNS REVIEWED GENERAL APPEARANCE: ALERT, ORIENTED X 3, MY ACUTE DISTRESS, WELL DEVELOPED, NOURISHED. HEAD AND FACE: NON-TRAUMATIC. EYES: PERRL, PINK CONJUNCTIVAS, EYELID NO TRAUMA, ANTERIOR CHAMBER WITH ARCUS SENILIS. EARS: PINNAS INTACT AND NO SIGNS OF TRAUMA OR ERYTHEMA EAR CANALS CLEAR AND NO DISCHARGE TM NO ERYTHEMA NOSE: NO DISCHARGE, NO BLEEDING. OROPHARYNX: MOUTH NORMAL, TONGUE PINK, PHARYNX CLEAR,NO ERYTHEMA, TONSILS NO EXUDATES, NO ABSCESSES NOTED, MUCOUS MEMBRANE MOIST NECK: SUPPLE, NON-TENDER, NO THYROMEGALY, NO MASSES, NO JVD, NO BRUITS BREAST:DEFERRED CHEST:NO TENDERNESS, NO CREPITUS, NO PARADOXICAL MOVEMENT, NO RETRACTIONS LUNGS:CLEAR, WELL-VENTILATED, SYMMETRIC, NO RALES, NO WHEEZING, NO RHONCHI, NO STRIDOR, GOOD BREATH SOUNDS BILATERALLY HEART: REGULAR RATE, REGULAR RHYTHM, NO MURMUR, NO GALLOPS VASCULAR: NO PERIPHERAL EDEMA, ABDOMEN: SOFT, POSITIVE BOWEL SOUNDS, NONDISTENDED, NO GUARDING, NONTENDER, NO REBOUND, NO MASSES NO HEPATOMEGALY, NO SPLENOMEGALY, NO RAMIREZ'S SIGN, NO HERNIAS. RECTAL: DEFERRED GENITAL: DEFERRED NEUROLOGICAL: NORMAL SPEECH, MOTOR FUNCTION INTACT, SENSORY FUNCTION INTACT MUSCULOSKELETAL: NECK NONTENDER, FULL RANGE OF MOTION, BACK NONTENDER, FULL RANGE OF MOTION, EXTREMITIES: TENDERNESS WITH PALPATION LEFT CALF, LEG IS WARM, UNABLE TO PALPATE DISTAL PULSES SKIN: COLOR PINK, DRY, NO TURGOR, NO RASH, NO LACERATIONS, NO ABRASIONS, NO CONTUSIONS. LYMPHATIC: DEFERRED Results (Laboratory/Radiology) Laboratory/Radiology US ARTERIAL UNILA LOW EXT DUPL REASON: SEVERE PAIN TO LEFT CALF WITH CLAUDICATION 3-4 DAYS. HISTORY OF STENT COMPARISON: None TECHNIQUE: Left leg arterial Doppler evaluation was performed with spectral analysis and color flow imaging. FINDINGS: There is triphasic waveform in the left common femoral artery. There is elevated flow velocity consistent with a stenosis. Proximal SFA is triphasic, mid SFA is monophasic. There is occlusion of the distal superficial femoral artery. There is reconstitution of the popliteal artery with monophasic waveforms. There is severely decreased flow velocities in the posterior tibial, anterior tibial and dorsalis pedis arteries, with IMPRESSION: 1. Focal occlusion in the distal superficial femoral artery with severely decreased inflow to the remainder of the left lower extremity. Labs Reviewed?: Yes ED Course ED Course SIXTEEN 50 PATIENT DOES NOT SHOW SEVERE OCCLUSIVE DISEASE HOWEVER THERE IS OCCLUSION OF THE SUPERFICIAL FEMORAL ARTERY. WE WILL FOLLOW UP WITH DR. FELDMAN GET PATIENT HAVE HER SEEN IN THE NEXT FEW DAYS. 1654/SPOKE WITH DR. LEON ENERGY MANAGEMENT SPECIALIST'S AND REVIEWED ARTERIAL ULTRASOUND STUDY. HE SAID TO CALL OFFICE IMMEDIATELY TO HAVE PATIENT SEEN IN THE NEXT 1-2 DAYS BY THE ENERGY MANAGEMENT SPECIALIST'S THAT DR. FELDMAN WAS OUT OF TOWN UNTIL NEXT WEEK. CALL THE OFFICE NUMBER AT [phone] AND IT WENT IMMEDIATELY TO VOICE MAIL. PATIENT KNOWS TO CALL DOCTOR 1ST THING IN THE MORNING FOR FOLLOW UP. Medical Decision Making MDM MDM: DIFFERENTIAL DIAGNOSIS: ISCHEMIC LIMB/CLAUDICATION/PID RATIONALE: TESTS CONSIDERED AND ORDERED SECONDARY TO SHARED DECISION MAKING INCLUDE: ULTRASOUND PREVIOUS OUTSIDE RECORDS REVIEWED: OLD ER VISITS. REVIEWED RISK OF COMPLICATION AND/OR MORBIDITY OR MORTALITY OF PATIENT MANAGEMENT: NONE MEDICATIONS-PER MEDICATION RECONCILIATION NEED FOR HOSPITALIZATION: PATIENT DOES NOT MEET CRITERIA FOR HOSPITALIZATION. NO NEED FOR EMERGENCY MAJOR/MINOR SURGERY: NO THERE ARE NO SOCIAL CONCERNS WITH THIS PATIENT. PRESCRIPTION DRUG MANAGEMENT PATIENT ON PLAVIX AND DENIES NEED FOR ADDITIONAL MEDICATIONS STATES IT REST WE WILL STOP THE PAIN. PRESCRIPTIONS WILL INCLUDE SYMPTOMATIC CARE PATIENT'S PRIOR EXTERNAL MEDICAL RECORDS FROM OTHER ER VISITS WERE REVIEWED BY ME INDICATED. PRIOR TESTING AND RESULTS FROM PREVIOUS VISITS WERE REVIEWED. PRIOR TESTS WERE TAKEN INTO ACCOUNT WITH MEDICAL DECISION MAKING AND RESOURCE UTILIZATION, INDEPENDENT HISTORIAN/HISTORIANS WERE USED TO OBTAIN COMPLETE MEDICAL HISTORY. I INDEPENDENTLY INTERPRETED THE TEST THAT WERE PERFORMED, RESULTS WERE REVIEWED BY ME AND CONSIDERED FINDINGS ON RADIOLOGY IF ORDERED. MEDICAL MANAGEMENT AND EXAMINATION INTERPRETATION DISCUSSIONS WERE HAD BY ME WITH OTHER QUALIFIED HEALTHCARE PROFESSIONALS INDICATED FOR THE PATIENT'S CARE. DX & DISP Disposition: Discharge Departure Impression: Primary Impression: Severe peripheral arterial disease Additional Impression: Intermittent claudication Condition: Stable Additional Instructions: FOLLOW-UP WITH PRIMARY CARE PROVIDER IN 1 TO 2 DAYS. TAKE MEDICATIONS DIRECTED HERE IN THE EMERGENCY ROOM. OKAY TO CONTINUE HOME MEDICATIONS UNLESS OTHERWISE DISCUSSED DURING YOUR VISIT IN THE EMERGENCY ROOM TODAY. RETURN TO YOUR NEAREST EMERGENCY ROOM IF SYMPTOMS WORSEN OR IF THERE IS NO IMPROVEMENT. CALL 911 IF YOU NEED IMMEDIATE ASSISTANCE. TAKE TYLENOL OR MOTRIN [id number] NEEDED AND IF NO CONTRAINDICATIONS ARE PRESENT. INCREASE ORAL HYDRATION. A WOUND CULTURE OR URINE CULTURE WAS ORDERED HERE IN THE EMERGENCY ROOM DEPARTMENT PLEASE FOLLOW-UP WITH PRIMARY CARE PROVIDER AND ADVISE THEM TO GET REPEAT PORTS FROM OUR FACILITY. IF YOU HAD ANY MARCOS WRAP/SPLINTS THAT WERE APPLIED HERE, PLEASE DO NOT REMOVE THEM UNTIL YOU SEE YOUR PRIMARY CARE OR SPECIALTY. CONTINUE ALL MEDICATIONS AT HOME. CALL DR. FELDMAN'S OFFICE IN THE MORNING AND ADVISED THEM THAT YOU WOULD COME TO THE HOSPITAL AND DR. LEON WANTED YOU TO BE SEEN IMMEDIATELY BY A ENERGY MANAGEMENT SPECIALIST. Referrals: ZAHRA VELASQUEZ (PCP) DUSTY FELDMAN MD Time of Disposition: 17:04 I have reviewed the case, and I agree with, Diagnosis and Plan I performed this substantive portion of this visit. I have reviewed and personally made and approve the management plan that is documented in the note by myself or the BRAYDEN. I acknowledge full responsibility for the patient's management plan. YUKI ALVARADO NP Nov 16, 2024 14:40 FAN LLAMAS MD Nov 22, 2024 14:11
--- NOTE | 2024-11-16 15:11 | NUR ---
PT CALLED TO BE BROUGHT BACK, BUT NO ANSWER.
--- NOTE | 2024-11-16 16:07 | NUR ---
PT CALLED AND ANSWERED. PLACED IN HALLWAY D
--- NOTE | 2024-11-16 16:19 | HMCIMG ---
US ARTERIAL UNILA LOW EXT DUPL REASON: SEVERE PAIN TO LEFT CALF WITH CLAUDICATION 3-4 DAYS. HISTORY OF STENT COMPARISON: None TECHNIQUE: Left leg arterial Doppler evaluation was performed with spectral analysis and color flow imaging. FINDINGS: There is triphasic waveform in the left common femoral artery. There is elevated flow velocity consistent with a stenosis. Proximal SFA is triphasic, mid SFA is monophasic. There is occlusion of the distal superficial femoral artery. There is reconstitution of the popliteal artery with monophasic waveforms. There is severely decreased flow velocities in the posterior tibial, anterior tibial and dorsalis pedis arteries, with IMPRESSION: 1. Focal occlusion in the distal superficial femoral artery with severely decreased inflow to the remainder of the left lower extremity.
[2024-11-16 16:57] LABS: BASOPHILS # (AUTO) 0.05 K/uL (0.00-0.20); BASOPHILS % (AUTO) 0.9 % (0.0-5.0); EOSINOPHILS # (AUTO) 0.36 K/uL (0.00-0.70); EOSINOPHILS % (AUTO) 6.6 % (0.0-8.0); HEMATOCRIT 37.9 % (36-48); IMMATURE GRANULOCYTE ABSOLUTE 0.01 K/uL (0-1); LYMPHOCYTES # (AUTO) 0.9 K/uL (1.0-4.8); LYMPHOCYTES % (AUTO) 17.1 % (21.0-51.0); MEAN CORPUSCULAR HEMOGLOBIN 31.3 pg (27.0-33.0); MEAN CORPUSCULAR HGB CONC 33.8 g/dL (32.0-36.0); MEAN CORPUSCULAR VOLUME 92.7 fL (79-99); MONOCYTES # (AUTO) 0.7 K/uL (0.1-1.0); MONOCYTES % (AUTO) 12.1 % (3.0-13.0); NEUTROPHILS # (AUTO) 3.4 K/uL (1.8-7.7); NEUTROPHILS % (AUTO) 63.1 % (40.0-77.0); PLATELET COUNT (AUTO) 234 K/uL (130-400); RED BLOOD CELL COUNT(AUTO) 4.09 MIL/uL (4.00-5.50); RED CELL DISTRIBUTION WIDTH 13.4 % (11.0-15.5); WHITE BLOOD COUNT (AUTO) 5.5 K/uL (4.8-10.8)
[2024-11-16 17:06] LABS: INR 0.94 (0.85-1.15); PROTHROMBIN TIME 10.6 SEC (9.6-11.6)
[2024-11-16 17:08] LABS: CREATININE 1.3 mg/dL (0.5-1.0); PARTIAL THROMBOPLASTIN TIME 24.5 SEC (26.3-35.5); POTASSIUM 3.5 mmol/L (3.5-5.1)
[2024-11-16 17:50] VITALS: BP 141/67; PULSE 59; RESP 16; TEMP 97.3; O2SAT 97
== END 2024-11-16 18:02 | disposition home or self-care (01) ==
LOC: EDH 14:07
DX: I73.89 Other specified peripheral vascular diseases (principal); I73.9 Peripheral vascular disease, unspecified; I10 Essential (primary) hypertension; I25.10 Atherosclerotic heart disease of native coronary artery without angina pectoris; I48.91 Unspecified atrial fibrillation; F17.200 Nicotine dependence, unspecified, uncomplicated; Z79.899 Other long term (current) drug therapy; Z88.8 Allergy status to other drugs, medicaments and biological substances; Z95.1 Presence of aortocoronary bypass graft
CPT/HCPCS: 36415; 80048; 85025; 85610; 85730; 93926; 99284

== ENCOUNTER 2024-11-17 09:08 | Inpatient (IN) | payer OTHER, MEDICARE ==
[~2024-11-17] VITALS: Ht 160 cm; Wt 79.7 kg
--- NOTE | 2024-11-17 09:47 | ERN ---
ED Note History of Present Illness Stated Complaint: LEG Chief Complaint: Lower Extremity Pain/Injury Time Seen by MD: 09:13 Dictation: This 84-year-old female was seen here yesterday for a progressive left leg claudication symptoms and was referred to Cardiology for today. Today the blade balancer referred her back here for further evaluation. Last night she had increasing pain including pain at rest. Her study yesterday showed high-grade but not complete obstruction. She has already had bypass and stents in the leg. She has no fever or other acute complaints at the present time She does not currently smoke drink use recreational drugs. Allergies: Coded Allergies: MARCOS Inhibitors (Unverified Allergy, Mild, cough, 05/17/20) gabapentin (Unverified Allergy, Unknown, 01/19/23) Home Meds Active Scripts Furosemide (Furosemide) 40 Mg Tablet, 40 MG PO DAILY, #30 TAB Prov:RYLEE ESCOBAR MD 08/19/24 Losartan Potassium (Losartan Potassium) 50 Mg Tablet, 50 MG PO DAILY, #30 TAB Prov:RYLEE ESCBOAR MD 08/19/24 Reported Medications Melatonin (Melatonin) 5 Mg Tablet, 15 MG PO HSPRN PRN for SLEEP, TAB 08/15/24 Ropinirole HCl (Ropinirole HCl) 1 Mg Tablet, 1 MG PO ACBKFST, TAB 08/15/24 Polyethylene Glycol 8000 (Polyethylene Glycol) 100 % Powder, 500 GM MC DAILY, APPL 08/14/24 Tizanidine HCl (Tizanidine HCl) 2 Mg Tablet, 2 MG PO HS, TAB 08/14/24 Cholecalciferol (Vitamin D3) 1,250 Mcg (89507 Unit) Cap, 41474 UNITS PO QWEEK, CAP Fridays08/14/24 Famotidine (Famotidine) 20 Mg Tablet, 20 MG PO DAILYDINNER, TAB 08/14/24 Aspirin (ASPIRIN 81 MG ECTAB) 81 Mg Ectab, 81 MG PO DAILYDINNER, TAB.EC 08/14/24 Amlodipine Besylate (Amlodipine Besylate) 10 Mg Tablet, 10 MG PO DAILY for 30 Days, #30 TAB 0 Refills 08/14/24 Isosorbide Mononitrate (Isosorbide Mononitrate) 20 Mg Tablet, 20 MG PO BID, TAB 08/14/24 Clopidogrel Bisulfate (Clopidogrel) 75 Mg Tablet, 75 MG PO PCBKFST, TAB 08/14/24 Bisoprolol Fumarate (Bisoprolol Fumarate) 5 Mg Tablet, 5 MG PO PCBKFST, TAB 08/14/24 Atorvastatin Calcium (LIPITOR) 40 Mg Tablet, 40 MG PO PCBKFST, TAB 08/14/24 Ropinirole HCl (Ropinirole HCl) 1 Mg Tablet, 1 MG PO HS, TAB 08/14/24 Pregabalin (Pregabalin) 50 Mg Capsule, 50 MG PO BIDAC, CAP 08/14/24 Pantoprazole Sodium (Pantoprazole Sodium) 40 Mg Granpkt.dr, 40 MG PO ACBKFST, PACK 08/14/24 Levothyroxine Sodium (Levothyroxine) 50 Mcg Capsule, 50 MCG PO ACBKFST, CAP 08/14/24 Past Medical History Past Medical History: CAD, Heart Disease, Hypertension, Other Additional Past Medical Hx: PAD Surgical History: CABG Surgical History Other: TIED KINKED BOWEL / WISDON TEETH / WIRE INTO TWO HAMMER TOES, CATARAT NICKY Family History: Negative Social History: Smokers, Negative History: Not Applicable Review of System Dictation All pertinent systems reviewed, negative except as documented in the HPI The ROS is obtained from patient GENERAL/CONSTITUTIONAL: Negative except as documented in HPI. ENT: Negative except as documented in HPI. CARDIOVASCULAR: Negative except as documented in HPI. RESPIRATORY: Negative except as documented in HPI. GASTROINTESTINAL: Negative except as documented in HPI. GENITOURINARY: Negative except as documented in HPI. MUSCULOSKELETAL: Negative except as documented in HPI. SKIN: Negative except as documented in HPI. NEUROLOGIC: Negative except as documented in HPI. Initial Vital Sign VS Vital Signs Date Time Temp Pulse Resp B/P (MAP) Pulse Ox O2 Delivery O2 Flow Rate FiO2 11/17/24 09:11 97.5 65 16 182/77 98 Room Air 0 11/17/24 09:16 21 Physical Exam Dictation VITAL SIGNS: note is made of triage vital signs CONSTITUTIONAL: This is a comfortable patient who is awake, alert, and appropriately interactive. HEAD: Normocephalic, Atraumatic. EYES: Periorbital areas with no swelling, redness, or edema. Lids and lashes are normal. Conjunctival injection is absent. Sclera anicteric. Pupils equal, round, reactive to light. ENT: No nasal discharge noted. Posterior pharynx is without exudate, redness, swelling, masses, or evidence of obstruction. Uvula midline. Mucous membranes moist. NECK: Trachea midline, no masses palpated, and no cervical lymphadenopathy. No swelling. Supple, full range of motion without nuchal rigidity. No vertebral point tenderness. No meningismus. CHEST/AXILLA: Normal chest wall appearance and motion. No tenderness. No crepitus. CV: Normal rate, regular rhythm. No murmur. No edema. The left foot is cool but not cold. RESPIRATORY:Respiratory rate is normal. Bilateral equal breath sounds with good airflow. Normal breath sounds are noted. No rales, rhonchi or wheezes noted. No increased work of breathing, no retractions. ABDOMEN: Inspection normal. No distention is appreciated. Bowel sounds are normal. No mass or organomegaly is appreciated. There is no tenderness. No rebound. No rigidity. No voluntary or involuntary guarding. BACK: Inspection is normal. No midline tenderness is appreciated. The patient appears comfortable when moving. : No CVA tenderness or bladder tenderness. SKIN: Warm, dry, with normal turgor. Capillary refill less than 3 seconds. Normal color.No rash. No cellulitis or abscess. No evidence of acute injury. MS/Extremity: There is no calf tenderness. Baseline range of motion is noted in all 4 extremities. There are no deformities. NEURO: Awake and alert, lucid. Facies symmetric and speech is clear. Motor strength 5/5 in all extremities. Sensory grossly intact. PSYCH: Patient is appropriately attentive and cooperative without evidence of hallucination. Results (Laboratory/Radiology) Laboratory/Radiology Laboratory Tests Test 11/17/24 11:07 Activated Partial Thromboplast Time 24.2 SEC (26.3-35.5) L Labs Reviewed?: Yes ED Course ED Course Orders Procedure Category Date Status Time Vital Signs(Adult CPOE 11/17/24 Transmitted Hospitalist) 10:47 Diphenhydramine Hcl PHA 11/17/24 In Process (Benadryl Cap) 11:00 Ondansetron 4mg Inj PHA 11/17/24 In Process (Zofran 4mg Inj) 11:00 Nurse To Enter Home CPOE 11/17/24 Transmitted Medication 10:47 Admit Orders ADM 11/17/24 Transmitted 10:47 Regular DIET 11/17/24 Transmitted Lunch Acetaminophen 500mg PHA 11/17/24 In Process Tab (Tylenol 500mg T 11:00 Ketorolac PHA 11/17/24 In Process Tromethamine 11:00 Initiate Heparin GUY 11/17/24 In Process Treatment Pro 11:01 Cbc With Differential LAB 11/18/24 Verified 04:00 Cbc With Differential LAB 11/19/24 Verified 04:00 Cbc With Differential LAB 11/20/24 Verified 04:00 Cbc With Differential LAB 11/21/24 Verified 04:00 Partial LAB 11/17/24 Complete Thromboplastin Time 11:01 Partial LAB 11/18/24 Verified Thromboplastin Time 11:01 Partial LAB 11/19/24 Verified Thromboplastin Time 11:01 Heparin 5,000 Unit PHA 11/17/24 In Process Vial (Heparin 5,000 U 12:00 Heparin 25,000 PHA 11/17/24 In Process Units/250ml D5w 12:00 Heparin Protocol CPOE 11/17/24 Transmitted Monitoring 11:01 Cardiology Consult CONPHYSVC 11/17/24 Transmitted 11:04 Famotidine 20mg Tab PHA 11/18/24 In Process (Pepcid 20mg Tab) 09:00 Initiate Po GUY 11/17/24 In Process Hypokalemia Protoc 11:20 Potassium Chloride PHA 11/17/24 In Process 20meq/100ml ([place] 11:30 Potassium Chl 10% PHA 11/17/24 In Process Elixir 20meq (Kcl 10% 11:30 Potassium Chloride PHA 11/17/24 In Process 20meq Er (K-Dur/Klor- 11:30 Notify Physician If CPOE 11/17/24 Transmitted There Is 11:20 Notify Md On The Next CPOE 11/17/24 Transmitted 11:20 Notify Md On The CPOE 11/17/24 Transmitted Next(Cont.) 11:20 Magnesium 2gm Premix PHA 11/17/24 In Process 50ml (Magnesium 2gm 11:30 Hydralazine 20mg Inj PHA 11/17/24 In Process (Apresoline 20mg In 11:30 Levothyroxine 50 Mcg PHA 11/18/24 In Process Tablet (Synthroid 5 06:30 Npo Except CPOE 11/18/24 Transmitted Meds:Time/Hold 11:53 Clip Groins From Umb CPOE 12/31/24 Transmitted To Knee 11:53 Notify Contrast CPOE 11/17/24 Transmitted Allgy/Abn Labs 11:53 Pre-Cath(Heart) Check CPOE 11/17/24 Transmitted List 11:53 Start X2 Iv 20g(Heart CPOE 11/17/24 Transmitted Cath) 11:53 Angio/Stent/Day Light Relief Operator CPOE 11/18/24 Transmitted Consent 06:00 Nothing By Mouth DIET 12/19/24 Transmitted Lunch Vital Signs Date Time Temp Pulse Resp B/P (MAP) Pulse Ox O2 Delivery O2 Flow Rate FiO2 11/17/24 09:16 97.5 65 16 182/77 98 Room Air* 0 21 11/17/24 09:11 97.5 65 16 182/77 98 Room Air 0 Medical Decision Making MDM INITIAL IMPRESSION Initial history and physical concerning for progressive claudication of the left leg Contributing medical problems: Known peripheral vascular disease, I have reviewed the triage nursing notes and vital signs. The patient is afebrile with acceptable oxygen saturation, heart rate and blood pressure. Initial plan: Cardiology consult DATA REVIEW I have reviewed additional NN, repeat VS, and monitoring where indicated. Heart rate, blood pressure, and O2 saturation are acceptable. Rosen diagnostic results: Labs and evaluation from yesterday were reviewed. Other independent historian: none Review of external data: Labs and ultrasound from yesterday ED COURSE Interventions: None Reassessment: Not indicated. DISPOSITION Final diagnostic impression: Left leg vascular claudication I discussed my findings, clinical impression and treatment recommendations with the patient. I have reviewed the social factors contributing to the patient's presentation and disposition planning. My final plan for disposition was made based upon clinical findings, response to treatment and discussion with the patient regarding management options. I spoke with Dr. Jones at 9:50 a.m.. He recommended admission and heparin drip. I discussed the case with the hospitalist service at 10:37 a.m. to arrange admission. Hospitalization is indicated due to unstable vascular claudication of the left leg and high risk of short term progression, complication, morbidity or mortality related to the current diagnosis The patient will be admitted as per recommendation of the cardiology service The patient has been advised regarding the reason for admission Questions were invited and answered in layman's terms. This dictation was prepared using medical voice recognition software. Occasional voice recognition errors may occur. When identified, these errors have been corrected. While every attempt is made to correct errors during dictation, errors may still exist. DX & DISP Disposition: Observation Decision to Admit Date: Nov 17, 2024 Decision to Admit Time: 12:13 Departure Impression: Primary Impression: Claudication with rest pain Additional Impression: Peripheral vascular disease Condition: Stable Referrals: ZAHRA VELASQUEZ (PCP) Time of Disposition: 12:13 ALY PIZANO MD Nov 17, 2024 09:47
[2024-11-17] MEDS ORDERED: ondanSETRON 4MG INJ IV PRN (11:00)
[2024-11-17] MEDS ORDERED: ketOROlac 10 MG TABLET PO PRN (11:00)
[2024-11-17] MEDS ORDERED: DiphenhydrAMINE HCL 25 MG CAPSULE PO PRN (11:00)
[2024-11-17] MEDS ORDERED: acetaMINOPHEN 500 MG TABLET PO PRN (11:00)
--- NOTE | 2024-11-17 11:27 | HP ---
[facility] PH[facility] Date of Service: Nov 17, 2024 Time of Service: 11:07 HISTORY OF PRESENT ILLNESS: The patient is an 84-year-old female with a significant past medical history of peripheral artery disease, including prior bypass surgery and stent placement in the left lower extremity, who presents with progressive claudication and resting pain in the left leg. Over the past2 weeks she has experienced worsening exertional leg pain, now accompanied by rest pain since last night. Vascular imaging study performed in the emergency department yesterday identified a high- grade arterial obstruction in the left lower extremity, although no complete occlusion was noted. The patient denies fever, chills, chest pain, dyspnea, or other systemic symptoms. She reports no signs of limb discoloration, ulceration, or open wounds. There is no history of recent trauma to the affected extremity. Her functional capacity has been limited by the severity of her symptoms, impacting her mobility and overall quality of life. 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 She is allergic to MARCOS inhibitors and gabapentin. She has no history of tobacco alcohol or illicit drug use. On initial physical examination, the patient's left pedal pulse was not palpable, and the left foot was noted to be colder than the right lower ext remity. Multiple varicosities and spider veins were observed on the left ankle, but there were no signs of acute ischemic changes such as cyanosis, ulceration, or gangrene. This presentation is consistent with unstable claudication due to progressive peripheral artery stenosis or thrombosis, warranting initiation of a heparin drip protocol and further evaluation by Cardiology for possible revascularization or additional intervention. REVIEW OF SYSTEMS CONSTITUTIONAL: Denies fevers, chills, or night sweats. No unintentional weight loss reported. NEUROLOGICAL: Denies headache, amaurosis fugax, motor weakness, sensory deficit, vertigo/spinning sensation, gait abnormalities, or tremors. ENT: No hearing loss, otalgia, otorrhea, rhinitis, rhinorrhea, hoarseness, or sore throat. CARDIOVASCULAR: Denies any exertional angina, dyspnea on exertion, orthopnea, paroxysmal nocturnal dyspnea, palpitations, life-threatening arrhythmias, claudication. PULMONARY: Denies any shortness of breath, cough, phlegm/sputum, hemoptysis, pleuritic chest pain. SLEEP: Denies morning headaches, daytime somnolence or napping. Denies difficulty falling asleep, staying asleep, waking from sleep. Denies knowledge of snoring. GASTROINTESTINAL: Denies any type of dysphagia to either liquids or solids. Denies nausea, vomiting, pyrosis, early satiety, abdominal pain, diarrhea, constipation, or changes in stool consistency or caliber. Denies coffee-ground emesis, hematemesis, hematochezia, or melanotic stools. GENITOURINARY: Denies frequency, urgency, nocturia, hematuria or incontinence (Storage/Irritative symptoms.) Low urinary stream, straining to void, urinary intermittency or hesitancy, splitting of the voiding stream, terminal dribbling. ENDOCRINOLOGIC: Denies polyuria, polydipsia, polyphagia or heat/cold intolerances. HEMATOLOGIC: Denies thrombophilia/previous clots, or coagulopathy/bleeding disorders. ONCOLOGIC: Denies personal history of malignancy. DERMATOLOGIC: Denies rashes or pruritus. PSYCHIATRIC: Denies any suicidal or homicidal ideation. Denies hallucinations. PAST MEDICAL HISTORY: Hypertension Dyslipidemia Hypothyroidism Severe peripheral vascular disease Acute kidney injury Acute on chronic diastolic heart failure with preserved left ventricular ejection fraction of 55-60% per echocardiogram on April 06, 2024 Abdominal Aortic aneurysm PAST SURGICAL HISTORY: CABG x3 on 09/2023 Tonsillectomy Hysterectomy Right tibial fibular ORIF Cholecystectomy PVD with stents PAST SOCIAL HISTORY: denies smoking, alcohol, illicit drugs FAMILY HISTORY: Noncontributory Coded Allergies: MARCOS Inhibitors (Unverified Allergy, Mild, cough, 05/17/20) gabapentin (Unverified Allergy, Unknown, 01/19/23) PHYSICAL EXAM GENERAL APPEARANCE: The patient is awake, alert, and oriented, in no acute cardiopulmonary distress. NEUROLOGICAL: Cranial nerves II-XII grossly intact. Motor is 5/5 in bilateral upper and lower extremities proximal to distal. No sensory deficits. HEENT: Face is symmetric. Pupils are equal and reactive. Extraocular movements are intact. NECK: Supple. No JVD. No thyromegaly. No submental, submandibular, pre- /postauricular, occipital or supraclavicular lymphadenopathy. CHEST: Normal chest expansion. No Telemetry. LUNGS: Absence of any rales, rhonchi or any wheezing. CARDIOVASCULAR: Regular. S1 and S2 normal. No appreciable rubs, murmurs or gallops. ABDOMEN: Soft, nontender, and nondistended. There is no rebound, voluntary guarding, or rigidity. : Deferred. No Silveira. EXTREMITIES: Non-edematous and not cyanotic. No clubbing. Good capillary refill. Bilateral lower extremity varicose veins. non-palpable let pedal pulse SKIN: No skin breakdown. Vital Sign (Last 24 Hours) 11/17/24 09:16 Temp 97.5 Pulse 65 Resp 16 B/P (MAP) 182/77 Pulse Ox 98 O2 Delivery Room Air* O2 Flow Rate 0 FiO2 21 LABS: Current Medications Medications (Trade) Dose Ordered Sig/Zuly Route PRN Reason Start Time Stop Time Status Last Admin Dose Admin Acetaminophen (TYLenol 500MG TAB) 500 mg Q6H PRN PO MILD PAIN (1-3) 11/17/24 11:00 12/17/24 10:59 UNV Diphenhydramine HCl (BENAdryl CAP) 25 mg Q4H PRN PO MILD ITCHING/RASH 11/17/24 11:00 12/17/24 10:59 UNV Famotidine (Pepcid 20mg Tab) 20 mg BID PO 11/17/24 21:00 12/17/24 20:59 UNV Heparin Sodium (Porcine) (HEParin 5,000 UNIT VIAL) *calculation based on ACTUAL B... AD PRN IV HEPARIN PROTOCOL 11/17/24 12:00 12/17/24 11:59 UNV Heparin Sodium/ Dextrose 250 ml @ 0 mls/hr Q6H IV 11/17/24 12:00 12/17/24 11:59 UNV Ketorolac Tromethamine (ketOROlac troMETHamine) 10 mg Q6H PRN PO MODERATE PAIN (4-6) 11/17/24 11:00 11/22/24 10:59 UNV Ondansetron HCl (zoFRAN 4MG INJ) 4 mg Q6H PRN IV NAUSEA/VOMITING 11/17/24 11:00 12/17/24 10:59 UNV DIAGNOSTICS / RADIOLOGY: [place] [id number] [address] IMAGING REPORT Signed PATIENT: CELINE LAMB MR#: [id number] : 1940 SEX: F AGE: 84 LOCATION: [facility] ORDER 37 STATUS: REG ER REPORT#: [id number] SERVICE 36 REASON: SEVERE PAIN TO LEFT CALF WITH CLAUDICATION 3-4 DAYS. HISTORY OF STENT ORDERING PHYSICIAN: YUKI ALVARADO NP PROCEDURE: ART U LE - US ARTERIAL UNILA LOW EXT DUPL US ARTERIAL UNILA LOW EXT DUPL REASON: SEVERE PAIN TO LEFT CALF WITH CLAUDICATION 3-4 DAYS. HISTORY OF STENT COMPARISON: None TECHNIQUE: Left leg arterial Doppler evaluation was performed with spectral analysis and color flow imaging. FINDINGS: There is triphasic waveform in the left common femoral artery. There is elevated flow velocity consistent with a stenosis. Proximal SFA is triphasic, mid SFA is monophasic. There is occlusion of the distal superficial femoral artery. There is reconstitution of the popliteal artery with monophasic waveforms. There is severely decreased flow velocities in the posterior tibial, anterior tibial and dorsalis pedis arteries, with IMPRESSION: 1. Focal occlusion in the distal superficial femoral artery with severely decreased inflow to the remainder of the left lower extremity. DICTATED BY: YO ORELLANA MD DATE: 11/16/241608 ELECTRONICALLY SIGNED BY: YO ORELLANA MD DATE: 11/16/241618 ASSESSMENT: Unstable claudication of left lower extremity Hypertension Dyslipidemia Hypothyroidism Severe peripheral vascular disease Acute kidney injury Acute on chronic diastolic heart failure with preserved left ventricular ejection fraction of 55-60% per echocardiogram on July, history of Abdominal Aortic aneurysm PLAN: Admit patient to inpatient med surg with tele Heparin drip protocol prn meds for pain, fever reconcile home meds once available Cardiovascular: Cardiology consult, will follow recommendations Follow hemodynamics Vital signs per facility protocol Kidneys & Electrolytes: Avoid nephrotoxic medications to the extent possible Monitor electrolytes and replace as needed Medications to be dosed according to renal function Avoid contrast if possible Hematology & Coagulation: Monitor for s/s of bleeding Monitor hemoglobin, coagulation studies as needed Keep Hgb >7 Transfuse 1 unit PRBC for Hgb <7 Transfuse 1 pack of platelets for platelets < 20,000 Prophylaxis: Continue GI ATTESTATION BY PHYSICIAN I have seen and examined the patient. I reviewed the documentation, medical decision making, and treatment plan as noted by the resident provider above. I agree with the findings and plan of care. Hilda Vargas MD, PRIYA N Nov 17, 2024 11:27
[2024-11-17] MEDS ORDERED: PoTASSium chloRIDE 20MEQ/100ML 100 ML IV PRN (11:30)
[2024-11-17] MEDS ORDERED: PoTASSium chl 10% ELIXIR 20MEQ 20 MEQ/15 ML UDCUP PO PRN (11:30)
[2024-11-17] MEDS ORDERED: MAGNESIUM 2GM PREMIX 50ML 50 ML IV PRN (11:30)
--- NOTE | 2024-11-17 11:40 | NUR ---
DR [facility] AT THE BEDSIDE.
--- NOTE | 2024-11-17 12:07 | CONS ---
[facility] Cardiology Consultation Note Cardiology progress note dictated for Darian Jones MD Date of service 11/17/2024 Chief complaint: Cramping and cold left leg Reason for consult: PAD Primary booth cleaner: Dr. Simon History of present illness: This is an 84-year-old female who has a history of PAD presented to the emergency department yesterday after she noticed severe cramping to her left leg with temperature and color changes to her foot. Patient was evaluated in the emergency department yesterday and arterial Doppler was performed of the left lower extremity and was discharged home. Testing demonstrated focal occlusion in the distal superficial femoral artery with severely decreased inflow to the remainder of the left lower extremity. She has a history of PAD and May-Thurner syndrome. She had a abdominal aortogram with runoffs February 27, 2024 demonstrating 100% occlusion of distal left SFA and left popliteal artery in addition to new areas of stenosis of the ostial and proximal left superficial femoral artery. She is status post laser atherectomy and drug coating balloon angioplasty to left SFA and left popliteal artery with two- vessel runoff noted to the left foot and patent right lower extremity SFA popliteal artery with two-vessel runoff no noted to right foot by Dr. Mayanrd. Past medical history: Positive for hypertension, hyperlipidemia, May-Thurner syndrome, peripheral artery disease, symptomatic bradycardia, Lexiscan Cardiolite on 01/22/2023 negative for ischemia, postop atrial fibrillation resolved. August 07, 2024 left ventricular ejection fraction 50-55% with moderate MR Past surgical history: 03/20/2023 right common and external iliac vein stent placement 14 mm x 120 mm. 03/20/2023 atherectomy and DCP angioplasty to 99% left popliteal InStent restenosis with distal 75% stenosis. July 05, 2023 left common and external iliac vein stent placement with a Placecasttronic 14 x 120 mm venous self expanding stent. DCB angioplasty to recurrent stenosis of the right SFA and popliteal. 02/27/2024 abdominal aortogram with 100% occlusion of distal left SFA and left popliteal artery in addition to a new areas of stenosis of the ostial and proximal left superficial femoral artery status post laser atherectomy and drug coated balloon angioplasty to left SFA and left popliteal artery with two-vessel runoff noted to the left foot and patent right lower extremity SFA popliteal artery with two-vessel runoff to the right foot. Right ankle surgery, left ankle surgery, hysterectomy, tonsillectomy, bowel resection, appendectomy. Social history: Patient lives with denies tobacco alcohol or illicit drug use Review of systems: 14 point review of systems performed pertinent positives and negatives discussed in HPI Family history: Noncontributory Allergies: MARCOS inhibitor, gabapentin Review of blood work: 11/16/2024 hemoglobin 12.8, hematocrit 37.9 platelets of 234 and white blood cells of five. Basic metabolic panel with a sodium of 141, potassium 3.5, BUN of 25, creatinine of 1.3 and a GFR of 40, magnesium was 2.20. Physical exam: Blood pressure is 182/77 heart rate of 65 beats per minute and regular normal S1-S2 no rubs gallops murmurs noted. Neck is supple no jugular vein distention no carotid bruits. Bilateral breath sounds are clear to auscultation. Lower extremity right foot with palpable pedal pulse warm to touch, left foot no palpable pulses, colder than right foot with superficial spider veins noted at the ankle level. Patient is alert awake and oriented. All others within normal limits. Assessment: PAD Left lower extremity arterial doppler 11/16/2024 focal occlusion in the distal superficial femoral artery with severely decreased inflow to the remainder of the left lower extremity. 02/27/2024 abdominal aortogram with 100% occlusion of distal left SFA and left popliteal artery in addition to a new areas of stenosis of the ostial and proximal left superficial femoral artery status post laser atherectomy and drug coated balloon angioplasty to left SFA and left popliteal artery with two-vessel runoff noted to the left foot and patent right lower extremity SFA popliteal artery with two-vessel runoff to the right foot. 03/20/2023 atherectomy and DCP angioplasty to 99% left popliteal InStent restenosis with distal 75% stenosis. [id number] DCB angioplasty to recurrent stenosis of the right SFA and popliteal. Chronic: May-Thurner syndrome, 03/20/2023 right common and external iliac vein stent placement 14 mm x 120 mm. July 05, 2023 left common and external iliac vein stent placement with a Placecasttronic 14 x 120 mm venous self expanding stent. Hypertension Lexiscan Cardiolite 01/22/2023 no for ischemia 2D echocardiogram August 07, 2024 left ventricular ejection fraction 50-55% with moderate MR Plan: 84-year-old female presented to the emergency department yesterday with complaints of change in color and temperature of her left foot with leg cramps. A arterial Doppler was performed demonstrated focal occlusion in the distal superficial femoral artery with severely decreased inferior to the remainder of the left lower extremity. She does have a history of PAD 02/27/2024 abdominal aortogram was performed demonstrated 100% occlusion of distal left SFA and left popliteal artery in addition to a new areas of stenosis of the ostial and proximal left superficial femoral artery status post laser atherectomy and drug coated balloon angioplasty to left SFA and left popliteal artery with two-vessel runoff noted to the left foot and patent right lower extremity SFA popliteal artery with two-vessel runoff to the right foot. Currently the patient is doing well she is resting comfortably pedal pulse on the left is not palpable is noted to be colder than the right lower extremity with varicosities and spider veins on ankle area. Medications from home have not been reconciled. We will start heparin drip. Further recommendations as we continue to evaluate patient. Addendum: The patient has had previous interventions on legs as described above. She is now having resting pain left leg. Arterial Dopplers in the emergency room yesterday demonstrated significant stenosis in the distal SFA. Heparin treatment protocol is being initiated. We will schedule the patient for aortic runoff study and possible intervention with Dr. Daniel Mcwilliams on morning. Lab will be closed tomorrow except for emergencies. We will also start antiplatelet agents in the form of aspirin 81 mg daily. The patient has been taking an [id number] of the medication for her cholesterol but is not on statin therapy. A fasting lipid panel will be obtained this admission. We will resume her home dose of levothyroxine. ATTESTATION BY PHYSICIAN I have seen and examined the patient. I reviewed the documentation, medical decision making, and treatment plan as noted by the mid-level provider above. I agree with the findings and plan of care. DARIAN JONES MD, [facility] [place] Nov 17, 2024 12:07 DARIAN JONES MD Nov 17, 2024 12:25
[2024-11-17] MEDS: HEParin 5,000 UNIT VIAL IV PRN (13:03)
[2024-11-17] MEDS: ASPIRIN 81MG CHEW TAB PO ONE (13:03)
[2024-11-17] MEDS: HEParin 25,000 UNITS/250ML D5W 250 ML IV SCH (13:24)
[2024-11-17 19:56] LABS: INR 1.03 (0.85-1.15); PROTHROMBIN TIME 11.5 SEC (9.6-11.6)
[2024-11-17 19:57] LABS: PARTIAL THROMBOPLASTIN TIME 77.4 SEC (26.3-35.5)
--- NOTE | 2024-11-17 20:03 | NUR ---
PTT 77.4, PER PROTOCOL HEPARIN DRIP DECREASED BY 2 UNITS/KG/HR; HEPARIN DRIP NOW RUNNING @15 UNITS/KG/HR
[2024-11-18] VITALS (9 sets, daily range): BP systolic 150–180; BP diastolic 68–84; PULSE 51–72; RESP 16–20; TEMP 97.4–98.2; O2SAT 94–96
--- NOTE | 2024-11-18 00:23 | NUR ---
REPORT GIVEN TO DAVID AGUAYO
[2024-11-18] MEDS ORDERED: ROPI1TAB46 PO (00:30)
[2024-11-18] MEDS ORDERED: FENO48TA10 PO (00:30)
[2024-11-18] MEDS ORDERED: METO-408 PO (00:30)
[2024-11-18] MEDS ORDERED: HYDR10 PO (00:30)
--- NOTE | 2024-11-18 00:40 | NUR ---
ADMIT PT ADMITTED TO ROOM 310, AAOX4. ASSISTED TO WALK TO THE RESTROOM THEN BACK TO BED, PT USING CANE. VERBALIZES LLE PAINS WITH MOVEMENT BUT REFUSED ANY PAIN MEDS SHE CLAIMS THAT PAIN SUBSIDES WITH REST. CONTINUED HEPARIN DRIP FROM ER AT 15 U/KG/HR. ADMISSION CARE DONE. ADMISSION V/S MONITORED, BP ELEVATED AT 180/78, HR=58 BPM. WILL RE-ASSESS PT'S BP. PLACED ON TELE MONITOR. ADMISSION ASSESSMENT DONE, PLEASE REFER TO CHART. ADMISSION DATA BASE COMPLETED. BED ALARM ACTIVATED. PLACED CALL LIGHT WITHIN REACH. ORIENTED TO ROOM AND UNIT. IN FOR MORE CARE AND MANAGEMENT. Addendum: 11/18/24 at 0147 by DAVID WEBSTER RN RN Amended: Links added.
[2024-11-18] MEDS ORDERED: POLY17PO4 PO (01:05)
[2024-11-18] MEDS: hydrALAZine 20MG/ML VIAL IV PRN (01:27)
[2024-11-18 01:38] LABS: BASOPHILS # (AUTO) 0.05 K/uL (0.00-0.20); BASOPHILS % (AUTO) 0.8 % (0.0-5.0); EOSINOPHILS # (AUTO) 0.31 K/uL (0.00-0.70); EOSINOPHILS % (AUTO) 4.7 % (0.0-8.0); HEMATOCRIT 33.9 % (36-48); IMMATURE GRANULOCYTE ABSOLUTE 0.02 K/uL (0-1); LYMPHOCYTES # (AUTO) 1.5 K/uL (1.0-4.8); LYMPHOCYTES % (AUTO) 22.4 % (21.0-51.0); MEAN CORPUSCULAR HEMOGLOBIN 31.8 pg (27.0-33.0); MEAN CORPUSCULAR HGB CONC 34.5 g/dL (32.0-36.0); MEAN CORPUSCULAR VOLUME 92.1 fL (79-99); MONOCYTES # (AUTO) 0.8 K/uL (0.1-1.0); MONOCYTES % (AUTO) 11.6 % (3.0-13.0); NEUTROPHILS % (AUTO) 60.2 % (40.0-77.0); PLATELET COUNT (AUTO) 192 K/uL (130-400); RED BLOOD CELL COUNT(AUTO) 3.68 MIL/uL (4.00-5.50); RED CELL DISTRIBUTION WIDTH 13.5 % (11.0-15.5); WHITE BLOOD COUNT (AUTO) 6.6 K/uL (4.8-10.8)
[2024-11-18 01:49] LABS: INR 1.04 (0.85-1.15); PROTHROMBIN TIME 11.6 SEC (9.6-11.6)
[2024-11-18 01:52] LABS: CHOLESTEROL 215 mg/dL (<200); HDL CHOLESTEROL 66 mg/dL (35-85); LDL DIRECT 119 mg/dL (0-99); TRIGLYCERIDES 96 mg/dL (30-200)
[2024-11-18 02:08] LABS: PARTIAL THROMBOPLASTIN TIME 128.7 SEC (26.3-35.5)
--- NOTE | 2024-11-18 02:10 | NUR ---
CRITICAL PTT PTT RESULT REPORTED TO PRIMARY NURSE, NURSE ON BREAK PER HEPARIN DRIP PROTOCOL HEPARIN DRIP STOPPED AT THIS TIME.
--- NOTE | 2024-11-18 03:10 | NUR ---
HEPARIN RESTARTED HEPARIN DRIP, DECREASED BY 2 U/KG/HR. CURRENT RATE NOW AT 13 U/KG/HR. ORDERED REPEAT PTT AT 0730AM PER PROTOCOL.
[2024-11-18] MEDS: levoTHYROxine 50 MCG TABLET PO SCH (05:37)
--- NOTE | 2024-11-18 05:40 | NUR ---
MEDS PT SLEPT AT INTERVALS DURING THE SHIFT. NO CONCERNS VERBALIZED. DUE MEDS ADMINISTERED, TOLERATED WELL. RE-CHECK BP HAD DECREASED TO 162/84, HR=60. NO DISTRESS NOTED. FOR MORE CARE.
[2024-11-18] MEDS: ASPIRIN 81MG CHEW TAB PO SCH (08:42)
[2024-11-18] MEDS: FAMOTIDINE 20MG TAB PO SCH (08:42)
--- NOTE | 2024-11-18 08:49 | NUR ---
HEPARIN PENDING PTT RESULTS.
--- NOTE | 2024-11-18 09:17 | PN ---
[facility] CARDIOLOGY PROGRESS NOTE Date Patient Seen: Nov 18, 2024 Time of Visit: 09:16 Problem List: Symptomatic PAD Interval History: Patient denies complaints Physical Examination: GENERAL: [No acute distress.] HEAD: [Normal with no signs of head trauma.] NECK Normal carotid upstrokes without bruits.] LUNGS: [Clear breath sounds bilaterally. On room air. No wheezes, or rhonchi.] HEART: [Normal rate and rhythm. Normal S1 and S2 without murmurs, gallop or rub.] VASC: [Peripheral pulses +2 bilateral radial. diminished DP. ABD: soft nontender EXT: [No cyanosis or edema.] SKIN: warm, dry NEURO: [Awake, alert, and oriented x3. Laboratory: [ ] Hematology Labs: Test 11/18/24 01:34 Range/Units White Blood Count 6.6 4.8-10.8 K/uL Red Blood Count 3.68 L 4.00-5.50 MIL/uL Hemoglobin 11.7 L 12.0-16.0 g/dL Hematocrit 33.9 L 36-48 % Mean Corpuscular Volume 92.1 79-99 fL Mean Corpuscular Hemoglobin 31.8 27.0-33.0 pg Mean Corpuscular Hemoglobin Concent 34.5 32.0-36.0 g/dL Red Cell Distribution Width 13.5 11.0-15.5 % Platelet Count 192 130-400 K/uL Mean Platelet Volume 10.8 H 7.5-10.5 fL Immature Granulocyte % (Auto) 0.3 0-1 % Neutrophils (%) (Auto) 60.2 40.0-77.0 % Lymphocytes (%) (Auto) 22.4 21.0-51.0 % Monocytes (%) (Auto) 11.6 3.0-13.0 % Eosinophils (%) (Auto) 4.7 0.0-8.0 % Basophils (%) (Auto) 0.8 0.0-5.0 % Neutrophils # (Auto) 4.0 1.8-7.7 K/uL Lymphocytes # (Auto) 1.5 1.0-4.8 K/uL Monocytes # (Auto) 0.8 0.1-1.0 K/uL Eosinophils # (Auto) 0.31 0.00-0.70 K/uL Basophils # (Auto) 0.05 0.00-0.20 K/uL Absolute Immature Granulocyte (auto 0.02 0-1 K/uL Nucleated Red Blood Cells 0.0 0.0-0.19 % Chemistry Labs: Test 11/18/24 01:34 Range/Units Triglycerides Level 96 30-200 mg/dL Cholesterol Level 215 H <200 mg/dL LDL Cholesterol 119 H 0-99 mg/dL HDL Cholesterol 66 35-85 mg/dL Coagulation Labs: Test 11/18/24 07:43 11/18/24 01:34 Range/Units Activated Partial Thromboplast Time 86.6 #H 26.3-35.5 SEC Prothrombin Time 11.6 9.6-11.6 SEC Prothromb Time International Ratio 1.04 0.85-1.15 Impression and Plan: PAD Left lower extremity arterial doppler 11/16/2024 focal occlusion in the distal superficial femoral artery with severely decreased inflow to the remainder of the left lower extremity. 02/27/2024 abdominal aortogram with 100% occlusion of distal L-SFA and left popliteal artery in addition to a new areas of stenosis of the ostial and proximal left SFA status post laser atherectomy and DCB to left SFA and left popliteal artery with 2V runoff noted to the left foot and patent R-SFA popliteal artery with 2V runoff 03/20/2023 atherectomy and DCB to 99% L-popliteal InStent restenosis with distal 75% stenosis. [id number] DCB angioplasty to recurrent stenosis of the R-SFA and popliteal. Chronic: May-Thurner syndrome, 03/20/2023 right common and external iliac vein stent placement 14 mm x 120 mm. July 05, 2023 left common and external iliac vein stent placement with a LimeTraytronic 14 x 120 mm venous self expanding stent. Hypertension Lexiscan Cardiolite 01/22/2023 no for ischemia 2D echocardiogram August 07, 2024 left ventricular ejection fraction 50-55% with moderate MR LDL 119 Patient will be continued on heparin drip Her LDL is 119. Will initiate statin therapy as well. PATIENT TO BE KEPT NPO AFTER MIDNIGHT FOR POSSIBLE INVASIVE ANGIOGRAPHY WITH DR. BROOK FIORE. NICHOLAS BELL DO Nov 18, 2024 09:17
[2024-11-18] MEDS ORDERED: MELATONIN 5 MG TABLET PO PRN (09:30)
--- NOTE | 2024-11-18 09:46 | PN ---
[facility] PROGRESS NOTE Date of Service: Nov 18, 2024 Time of Service: 09:35 SUBJECTIVE: 11/18/24 - 84 year old female with an extensive medical history including hypertension, hyperlipidemia, and PAD. She is scheduled for a catheterization tomorrow for further vascular assessment and potential intervention. Her blood pressure is poorly controlled and her home medications have been reconciled. Her lipid panel results are elevated and we will start her on statin therapy. Prolonged PTT, 128.7, led to holding heparin drip per protocol. Patient will be NPO at midnight for scheduled procedure tomorrow. We will continue to monitor an treat and follow recommendations per Cardiology. Remarkable labs: Hgb 11.7, Hct 33.9, platelets 192K. REVIEW OF SYSTEMS CONSTITUTIONAL: Denies fevers, chills, or night sweats. No unintentional weight loss reported. NEUROLOGICAL: Denies headache, amaurosis fugax, motor weakness, sensory deficit, vertigo/spinning sensation, gait abnormalities, or tremors. ENT: No hearing loss, otalgia, otorrhea, rhinitis, rhinorrhea, hoarseness, or sore throat. CARDIOVASCULAR: Denies any exertional angina, dyspnea on exertion, orthopnea, paroxysmal nocturnal dyspnea, palpitations, life-threatening arrhythmias, claudication. PULMONARY: Denies any shortness of breath, cough, phlegm/sputum, hemoptysis, pleuritic chest pain. SLEEP: Denies morning headaches, daytime somnolence or napping. Denies difficulty falling asleep, staying asleep, waking from sleep. Denies knowledge of snoring. GASTROINTESTINAL: Denies any type of dysphagia to either liquids or solids. Denies nausea, vomiting, pyrosis, early satiety, abdominal pain, diarrhea, constipation, or changes in stool consistency or caliber. Denies coffee-ground emesis, hematemesis, hematochezia, or melanotic stools. GENITOURINARY: Denies frequency, urgency, nocturia, hematuria or incontinence (Storage/Irritative symptoms.) Low urinary stream, straining to void, urinary intermittency or hesitancy, splitting of the voiding stream, terminal dribbling. ENDOCRINOLOGIC: Denies polyuria, polydipsia, polyphagia or heat/cold intolerances. HEMATOLOGIC: Denies thrombophilia/previous clots, or coagulopathy/bleeding disorders. ONCOLOGIC: Denies personal history of malignancy. DERMATOLOGIC: Denies rashes or pruritus. PSYCHIATRIC: Denies any suicidal or homicidal ideation. Denies hallucinations. PHYSICAL EXAM GENERAL APPEARANCE: The patient is awake, alert, and oriented, in no acute cardiopulmonary distress. NEUROLOGICAL: Cranial nerves II-XII grossly intact. Motor is 5/5 in bilateral upper and lower extremities proximal to distal. No sensory deficits. HEENT: Face is symmetric. Pupils are equal and reactive. Extraocular movements are intact. NECK: Supple. No JVD. No thyromegaly. No submental, submandibular, pre- /postauricular, occipital or supraclavicular lymphadenopathy. CHEST: Normal chest expansion. No Telemetry. LUNGS: Absence of any rales, rhonchi or any wheezing. CARDIOVASCULAR: Regular. S1 and S2 normal. No appreciable rubs, murmurs or gallops. ABDOMEN: Soft, nontender, and nondistended. There is no rebound, voluntary guarding, or rigidity. : Deferred. No Silveira. EXTREMITIES: Non-edematous and not cyanotic. No clubbing. Good capillary refill. Bilateral lower extremity varicose veins. non-palpable let pedal pulse SKIN: No skin breakdown. Vital Signs (last 8hr) Date Time Temp Pulse Resp B/P (MAP) Pulse Ox O2 Delivery O2 Flow Rate FiO2 11/18/24 08:28 97.3 65 18 178/76 96 Room Air 11/18/24 05:36 60 20 162/84 92 Room Air 0.0 11/18/24 04:00 98.1 63 16 171/82 95 Room Air 21 LABS: Laboratory: Test 11/18/24 07:43 11/18/24 01:34 Range/Units Activated Partial Thromboplast Time 86.6 #H 26.3-35.5 SEC White Blood Count 6.6 4.8-10.8 K/uL Red Blood Count 3.68 L 4.00-5.50 MIL/uL Hemoglobin 11.7 L 12.0-16.0 g/dL Hematocrit 33.9 L 36-48 % Mean Corpuscular Volume 92.1 79-99 fL Mean Corpuscular Hemoglobin 31.8 27.0-33.0 pg Mean Corpuscular Hemoglobin Concent 34.5 32.0-36.0 g/dL Red Cell Distribution Width 13.5 11.0-15.5 % Platelet Count 192 130-400 K/uL Mean Platelet Volume 10.8 H 7.5-10.5 fL Immature Granulocyte % (Auto) 0.3 0-1 % Neutrophils (%) (Auto) 60.2 40.0-77.0 % Lymphocytes (%) (Auto) 22.4 21.0-51.0 % Monocytes (%) (Auto) 11.6 3.0-13.0 % Eosinophils (%) (Auto) 4.7 0.0-8.0 % Basophils (%) (Auto) 0.8 0.0-5.0 % Neutrophils # (Auto) 4.0 1.8-7.7 K/uL Lymphocytes # (Auto) 1.5 1.0-4.8 K/uL Monocytes # (Auto) 0.8 0.1-1.0 K/uL Eosinophils # (Auto) 0.31 0.00-0.70 K/uL Basophils # (Auto) 0.05 0.00-0.20 K/uL Absolute Immature Granulocyte (auto 0.02 0-1 K/uL Nucleated Red Blood Cells 0.0 0.0-0.19 % Prothrombin Time 11.6 9.6-11.6 SEC Prothromb Time International Ratio 1.04 0.85-1.15 Triglycerides Level 96 30-200 mg/dL Cholesterol Level 215 H <200 mg/dL LDL Cholesterol 119 H 0-99 mg/dL HDL Cholesterol 66 35-85 mg/dL Current Medications Medications (Trade) Dose Ordered Sig/Zuly Route PRN Reason Start Time Stop Time Status Last Admin Dose Admin Acetaminophen (TYLenol 500MG TAB) 500 mg Q6H PRN PO MILD PAIN (1-3) 11/17/24 11:00 12/17/24 10:59 Aspirin (Aspirin 81mg Chew Tab) 81 mg DAILY PO 11/18/24 09:00 12/18/24 08:59 11/18/24 08:42 81 MG Atorvastatin Calcium (LIPItor 20MG) 20 mg HS PO 11/18/24 21:00 11/18/24 09:32 DC Atorvastatin Calcium (LIPItor 40MG) 40 mg PCBKFST PO 11/19/24 09:00 12/19/24 08:59 Diphenhydramine HCl (BENAdryl CAP) 25 mg Q4H PRN PO MILD ITCHING/RASH 12/31/24 11:00 12/17/24 10:59 Famotidine (Pepcid 20mg Tab) 20 mg QODAY PO 11/18/24 09:00 12/18/24 08:59 11/18/24 08:42 20 MG Fenofibrate (Tricor) 48 mg DAILYDINNER PO 11/18/24 17:00 12/18/24 16:59 Furosemide (LASix 40MG TAB) 40 mg DAILY PO 11/19/24 09:00 12/19/24 08:59 Heparin Sodium (Porcine) (HEParin 5,000 UNIT VIAL) *calculation based on ACTUAL B... AD PRN IV HEPARIN PROTOCOL 11/17/24 12:00 12/17/24 11:59 11/17/24 13:03 5,000 UNIT Heparin Sodium/ Dextrose 250 ml @ 0 mls/hr Q6H IV 11/17/24 12:00 12/17/24 11:59 11/17/24 13:24 13.1 MLS/HR Hydralazine HCl (APRESOLine 10MG TAB) 10 mg DAILYDINNER PO 11/18/24 17:00 12/18/24 16:59 Hydralazine HCl (APRESOLine 20MG INJ) 10 mg Q6H PRN IV ADMINISTER FOR SBP > 160 11/17/24 11:30 12/17/24 11:29 11/18/24 08:44 10 MG Isosorbide Mononitrate (Ismo) 20 mg BID PO 11/18/24 21:00 12/18/24 20:59 Ketorolac Tromethamine (ketOROlac troMETHamine) 10 mg Q6H PRN PO MODERATE PAIN (4-6) 11/17/24 11:00 11/22/24 10:59 Levothyroxine Sodium (SYNTHroid 50MCG TAB) 50 mcg DAILY@0630 PO 11/18/24 06:30 12/18/24 06:29 11/18/24 05:37 50 MCG Losartan Potassium (CozAAR 50 mg TAB) 50 mg DAILY PO 11/19/24 09:00 12/19/24 08:59 Magnesium Sulfate 50 ml @ 0 mls/hr PROTOCOL PRN IV Hypomagnesemia 11/17/24 11:30 12/17/24 11:29 Melatonin (Melatonin) 15 mg HSPRN PRN PO SLEEP 11/18/24 09:30 12/18/24 09:29 Metoprolol Succinate (TopROL XL) 12.5 mg DAILY PO 11/19/24 09:00 12/19/24 08:59 Miscellaneous Medication (Amlodipine Besylate ) 10 mg DAILY PO 11/19/24 09:00 12/19/24 08:59 UNV Miscellaneous Medication (Levothyroxine Sodium (Levothyroxine)) 50 mcg ACBKFST PO 11/19/24 07:30 11/18/24 09:34 DC Ondansetron HCl (zoFRAN 4MG INJ) 4 mg Q6H PRN IV NAUSEA/VOMITING 11/17/24 11:00 12/17/24 10:59 Potassium Chloride 100 ml @ 100 mls/hr AD PRN IV POTASSIUM PROTOCOL 11/17/24 11:30 12/17/24 11:29 Potassium Chloride (K-Dur/Klor-Con 20meq) 20 meq AD PRN PO POTASSIUM PROTOCOL 11/17/24 11:30 12/17/24 11:29 Potassium Chloride (KCl 10% Elixir 20meq/15ml) 20 meq AD PRN PO POTASSIUM PROTOCOL 11/17/24 11:30 12/17/24 11:29 Ropinirole HCl (REquip) 1 mg BID PO 11/18/24 21:00 12/18/24 20:59 Tizanidine HCl (Tizanidine HCl) 2 mg HS PO 11/18/24 21:00 12/18/24 20:59 DIAGNOSTICS / RADIOLOGY: ASSESSMENT: Unstable claudication of left lower extremity Hypertension Dyslipidemia Hypothyroidism Severe peripheral vascular disease Acute kidney injury Acute on chronic diastolic heart failure with preserved left ventricular ejection fraction of 55-60% per echocardiogram on July, history of Abdominal Aortic aneurysm PLAN: patient med surg with tele Heparin drip protocol prn meds for pain, fever placed on statin therapy Cardiovascular: Cardiology consult, will follow recommendations Follow hemodynamics Vital signs per facility protocol Kidneys & Electrolytes: Avoid nephrotoxic medications to the extent possible Monitor electrolytes and replace as needed Medications to be dosed according to renal function Avoid contrast if possible Hematology & Coagulation: Monitor for s/s of bleeding Monitor hemoglobin, coagulation studies as needed Keep Hgb >7 Transfuse 1 unit PRBC for Hgb <7 Transfuse 1 pack of platelets for platelets < 20,000 Prophylaxis: Continue GI ATTESTATION BY PHYSICIAN I have seen and examined the patient. I reviewed the documentation, medical decision making, and treatment plan as noted by the resident provider above. I agree with the findings and plan of care. Hilda Vargas MD, PRIYA N Nov 18, 2024 09:46
[2024-11-18] MEDS: polyETHYLene GLYCol 3350 17 GM POWD.PACK PO SCH (12:31)
[2024-11-18] MEDS: LoSARTan 50 MG TABLET PO SCH (12:31)
[2024-11-18] MEDS: furoSEMIDE 40 MG TABLET PO SCH (12:32)
[2024-11-18] MEDS: atorVAStatin 40 MG TABLET PO SCH (12:34)
[2024-11-18] MEDS: amLODIPine 5 MG TAB PO SCH (12:35)
[2024-11-18] MEDS: FENOFIBRATE NANOCRYSTALLIZED 48 MG TAB PO SCH (16:14)
[2024-11-18] MEDS: metOPROLol sucCINATE 25 MG TAB.SR.24H PO SCH (16:14)
--- NOTE | 2024-11-18 16:53 | NUR ---
Discharge Planning: Pt. states she lives alone. States she rents out a room at her house to a [place] friend who keeps her company part of the year. States she is independent with all ADL's. No home health, [id number] services, or DME. PCP is Dr. Laura Amanda, and preferred pharmacy is [facility] [place]. DCP is for home. No d/c needs at this time. Addendum: 11/18/24 at 1656 by LUC JERRY RN CM Amended: Links added.
[2024-11-18] MEDS: hydrALAZine HCL 10 MG TABLET PO SCH (17:33)
[2024-11-18] MEDS ORDERED: atorVAStatin 20 MG TABLET PO SCH (21:00)
[2024-11-18] MEDS: TIZANIDINE HCL 2 MG TABLET PO SCH (21:24)
[2024-11-18] MEDS: ropiNIRole HCL 1 MG TABLET PO SCH (21:24)
[2024-11-18] MEDS: ISOSORBIDE MONONITRATE 20 MG TABLET PO SCH (21:24)
[2024-11-19] VITALS (16 sets, daily range): BP systolic 75–155; BP diastolic 45–80; PULSE 59–79; RESP 17–18; TEMP 97.7–98.2; O2SAT 93–96
[2024-11-19 01:38] LABS: BASOPHILS # (AUTO) 0.04 K/uL (0.00-0.20); BASOPHILS % (AUTO) 0.6 % (0.0-5.0); EOSINOPHILS # (AUTO) 0.28 K/uL (0.00-0.70); EOSINOPHILS % (AUTO) 4.1 % (0.0-8.0); HEMATOCRIT 32.4 % (36-48); IMMATURE GRANULOCYTE ABSOLUTE 0.03 K/uL (0-1); LYMPHOCYTES # (AUTO) 1.5 K/uL (1.0-4.8); LYMPHOCYTES % (AUTO) 22.5 % (21.0-51.0); MEAN CORPUSCULAR HEMOGLOBIN 31.6 pg (27.0-33.0); MEAN CORPUSCULAR HGB CONC 34.3 g/dL (32.0-36.0); MEAN CORPUSCULAR VOLUME 92.3 fL (79-99); MONOCYTES # (AUTO) 0.8 K/uL (0.1-1.0); MONOCYTES % (AUTO) 11.3 % (3.0-13.0); NEUTROPHILS # (AUTO) 4.1 K/uL (1.8-7.7); NEUTROPHILS % (AUTO) 61.1 % (40.0-77.0); PLATELET COUNT (AUTO) 204 K/uL (130-400); RED BLOOD CELL COUNT(AUTO) 3.51 MIL/uL (4.00-5.50); RED CELL DISTRIBUTION WIDTH 13.9 % (11.0-15.5); WHITE BLOOD COUNT (AUTO) 6.8 K/uL (4.8-10.8)
--- NOTE | 2024-11-19 04:05 | NUR ---
LATE ENTRY 0000 ADEQUATE AMOUNT STILL LEFT IN CURRENT HEPARIN BAG. NEW PTT THERAPEUTIC AT 59.5. NO CHANGES MADE TO CURRENT RATE. NEXT PTT SCHEDULED TO BE DRAWN AT 0130 0200 ADEQUATE AMOUNT STILL LEFT IN CURRENT HEPARIN BAG. NEW PTT STILL THERAPEUTIC AT 65.5. NO CHANGES MADE TO CURRENT RATE. HEPARIN DRIP TO BE STOPPED AT 0400 0400 HEPARIN DRIP STOPPED AT THIS TIME. PATIENT DISCONNECTED FROM HEPARIN DRIP AT THIS TIME. PATIENT LEFT SALINE LOCKED
[2024-11-19] MEDS ORDERED: NON-FORMULARY MEDICATION 1 EACH (Levothyroxine Sodium (Levothyroxine) 50 MCG) PO SCH (07:30)
[2024-11-19] MEDS ORDERED: LoSARTan 50 MG TABLET PO SCH (09:00)
[2024-11-19] MEDS ORDERED: amLODIPine 5 MG TAB PO SCH (09:00)
[2024-11-19] MEDS ORDERED: furoSEMIDE 40 MG TABLET PO SCH (09:00)
[2024-11-19] MEDS ORDERED: metOPROLol sucCINATE 25 MG TAB.SR.24H PO SCH (09:00)
[2024-11-19] MEDS ORDERED: atorVAStatin 40 MG TABLET PO SCH (09:00)
[2024-11-19] MEDS ORDERED: polyETHYLene GLYCol 3350 17 GM POWD.PACK PO SCH (09:00)
--- NOTE | 2024-11-19 09:18 | PN ---
[facility] PROGRESS NOTE Date of Service: Nov 19, 2024 Time of Service: 09:17 SUBJECTIVE: 11/18/24 - 84 year old female with an extensive medical history including hypertension, hyperlipidemia, and PAD. She is scheduled for a catheterization tomorrow for further vascular assessment and potential intervention. Her blood pressure is poorly controlled and her home medications have been reconciled. Her lipid panel results are elevated and we will start her on statin therapy. Prolonged PTT, 128.7, led to holding heparin drip per protocol. Patient will be NPO at midnight for scheduled procedure tomorrow. We will continue to monitor an treat and follow recommendations per Cardiology. Remarkable labs: Hgb 11.7, Hct 33.9, platelets 192K. 11/19/24 - Patient seen at bedside. No overnight acute events. Patient saturating well on room air. Awaiting cath procedure with Dr. Mcwilliams today. We will continue to monitor an treat and follow recommendations per Cardiology. Remarkable labs: H&H stable, platelets 204K. Will check labs in the AM. REVIEW OF SYSTEMS CONSTITUTIONAL: Denies fevers, chills, or night sweats. No unintentional weight loss reported. NEUROLOGICAL: Denies headache, amaurosis fugax, motor weakness, sensory deficit, vertigo/spinning sensation, gait abnormalities, or tremors. ENT: No hearing loss, otalgia, otorrhea, rhinitis, rhinorrhea, hoarseness, or sore throat. CARDIOVASCULAR: Denies any exertional angina, dyspnea on exertion, orthopnea, paroxysmal nocturnal dyspnea, palpitations, life-threatening arrhythmias, claudication. PULMONARY: Denies any shortness of breath, cough, phlegm/sputum, hemoptysis, pleuritic chest pain. SLEEP: Denies morning headaches, daytime somnolence or napping. Denies difficulty falling asleep, staying asleep, waking from sleep. Denies knowledge of snoring. GASTROINTESTINAL: Denies any type of dysphagia to either liquids or solids. Denies nausea, vomiting, pyrosis, early satiety, abdominal pain, diarrhea, constipation, or changes in stool consistency or caliber. Denies coffee-ground emesis, hematemesis, hematochezia, or melanotic stools. GENITOURINARY: Denies frequency, urgency, nocturia, hematuria or incontinence (Storage/Irritative symptoms.) Low urinary stream, straining to void, urinary intermittency or hesitancy, splitting of the voiding stream, terminal dribbling. ENDOCRINOLOGIC: Denies polyuria, polydipsia, polyphagia or heat/cold intolerances. HEMATOLOGIC: Denies thrombophilia/previous clots, or coagulopathy/bleeding disorders. ONCOLOGIC: Denies personal history of malignancy. DERMATOLOGIC: Denies rashes or pruritus. PSYCHIATRIC: Denies any suicidal or homicidal ideation. Denies hallucinations. PHYSICAL EXAM GENERAL APPEARANCE: The patient is awake, alert, and oriented, in no acute cardiopulmonary distress. NEUROLOGICAL: Cranial nerves II-XII grossly intact. Motor is 5/5 in bilateral upper and lower extremities proximal to distal. No sensory deficits. HEENT: Face is symmetric. Pupils are equal and reactive. Extraocular movements are intact. NECK: Supple. No JVD. No thyromegaly. No submental, submandibular, pre- /postauricular, occipital or supraclavicular lymphadenopathy. CHEST: Normal chest expansion. No Telemetry. LUNGS: Absence of any rales, rhonchi or any wheezing. CARDIOVASCULAR: Regular. S1 and S2 normal. No appreciable rubs, murmurs or gallops. ABDOMEN: Soft, nontender, and nondistended. There is no rebound, voluntary guarding, or rigidity. : Deferred. No Silveira. EXTREMITIES: Non-edematous and not cyanotic. No clubbing. Good capillary refill. Bilateral lower extremity varicose veins. non-palpable let pedal pulse SKIN: No skin breakdown. Vital Signs (last 8hr) Date Time Temp Pulse Resp B/P (MAP) Pulse Ox O2 Delivery O2 Flow Rate FiO2 11/19/24 08:00 97.7 66 18 155/73 93 Room Air 11/19/24 04:00 98.1 60 18 119/63 95 Room Air LABS: Laboratory: Test 11/19/24 01:34 11/18/24 01:34 Range/Units White Blood Count 6.8 4.8-10.8 K/uL Red Blood Count 3.51 L 4.00-5.50 MIL/uL Hemoglobin 11.1 L 12.0-16.0 g/dL Hematocrit 32.4 L 36-48 % Mean Corpuscular Volume 92.3 79-99 fL Mean Corpuscular Hemoglobin 31.6 27.0-33.0 pg Mean Corpuscular Hemoglobin Concent 34.3 32.0-36.0 g/dL Red Cell Distribution Width 13.9 11.0-15.5 % Platelet Count 204 130-400 K/uL Mean Platelet Volume 11.0 H 7.5-10.5 fL Immature Granulocyte % (Auto) 0.4 0-1 % Neutrophils (%) (Auto) 61.1 40.0-77.0 % Lymphocytes (%) (Auto) 22.5 21.0-51.0 % Monocytes (%) (Auto) 11.3 3.0-13.0 % Eosinophils (%) (Auto) 4.1 0.0-8.0 % Basophils (%) (Auto) 0.6 0.0-5.0 % Neutrophils # (Auto) 4.1 1.8-7.7 K/uL Lymphocytes # (Auto) 1.5 1.0-4.8 K/uL Monocytes # (Auto) 0.8 0.1-1.0 K/uL Eosinophils # (Auto) 0.28 0.00-0.70 K/uL Basophils # (Auto) 0.04 0.00-0.20 K/uL Absolute Immature Granulocyte (auto 0.03 0-1 K/uL Nucleated Red Blood Cells 0.0 0.0-0.19 % Activated Partial Thromboplast Time 65.5 H 26.3-35.5 SEC Prothrombin Time 11.6 9.6-11.6 SEC Prothromb Time International Ratio 1.04 0.85-1.15 Triglycerides Level 96 30-200 mg/dL Cholesterol Level 215 H <200 mg/dL LDL Cholesterol 119 H 0-99 mg/dL HDL Cholesterol 66 35-85 mg/dL Current Medications Medications (Trade) Dose Ordered Sig/Zuly Route PRN Reason Start Time Stop Time Status Last Admin Dose Admin Acetaminophen (TYLenol 500MG TAB) 500 mg Q6H PRN PO MILD PAIN (1-3) 11/17/24 11:00 12/17/24 10:59 Amlodipine Besylate (NorvASC 5MG TAB) 10 mg DAILY PO 11/18/24 12:00 12/18/24 11:59 11/18/24 12:35 10 MG Amlodipine Besylate (NorvASC 5MG TAB) 10 mg DAILY PO 11/19/24 09:00 11/18/24 11:42 DC Aspirin (Aspirin 81mg Chew Tab) 81 mg DAILY PO 11/18/24 09:00 12/18/24 08:59 11/18/24 08:42 81 MG Atorvastatin Calcium (LIPItor 20MG) 20 mg HS PO 11/18/24 21:00 11/18/24 09:32 DC Atorvastatin Calcium (LIPItor 40MG) 40 mg PCBKFST PO 11/18/24 12:00 12/18/24 11:59 11/18/24 12:34 40 MG Atorvastatin Calcium (LIPItor 40MG) 40 mg PCBKFST PO 11/19/24 09:00 11/18/24 11:42 DC Diphenhydramine HCl (BENAdryl CAP) 25 mg Q4H PRN PO MILD ITCHING/RASH 11/17/24 11:00 12/17/24 10:59 Famotidine (Pepcid 20mg Tab) 20 mg QODAY PO 11/18/24 09:00 12/18/24 08:59 11/18/24 08:42 20 MG Fenofibrate (Tricor) 48 mg DAILYDINNER PO 11/18/24 17:00 12/18/24 16:59 11/18/24 16:14 48 MG Furosemide (LASix 40MG TAB) 40 mg DAILY PO 11/18/24 12:00 12/18/24 11:59 11/18/24 12:32 40 MG Furosemide (LASix 40MG TAB) 40 mg DAILY PO 11/19/24 09:00 11/18/24 11:42 DC Heparin Sodium (Porcine) (HEParin 5,000 UNIT VIAL) *calculation based on ACTUAL B... AD PRN IV HEPARIN PROTOCOL 11/17/24 12:00 12/17/24 11:59 11/17/24 13:03 5,000 UNIT Heparin Sodium/ Dextrose 250 ml @ 0 mls/hr Q6H IV 11/17/24 12:00 12/17/24 11:59 11/18/24 12:33 8.48 MLS/HR Hydralazine HCl (APRESOLine 10MG TAB) 10 mg DAILYDINNER PO 11/18/24 17:00 12/18/24 16:59 11/18/24 17:33 10 MG Hydralazine HCl (APRESOLine 20MG INJ) 10 mg Q6H PRN IV ADMINISTER FOR SBP > 160 12/31/24 11:30 12/17/24 11:29 11/18/24 08:44 10 MG Isosorbide Mononitrate (Ismo) 20 mg BID PO 11/18/24 21:00 12/18/24 20:59 11/18/24 21:24 20 MG Ketorolac Tromethamine (ketOROlac troMETHamine) 10 mg Q6H PRN PO MODERATE PAIN (4-6) 11/17/24 11:00 11/22/24 10:59 Levothyroxine Sodium (SYNTHroid 50MCG TAB) 50 mcg DAILY@0630 PO 11/18/24 06:30 12/18/24 06:29 11/18/24 05:37 50 MCG Losartan Potassium (CozAAR 50 mg TAB) 50 mg DAILY PO 11/18/24 12:00 12/18/24 11:59 11/18/24 12:31 50 MG Losartan Potassium (CozAAR 50 mg TAB) 50 mg DAILY PO 11/19/24 09:00 11/18/24 11:42 DC Magnesium Sulfate 50 ml @ 0 mls/hr PROTOCOL PRN IV Hypomagnesemia 11/17/24 11:30 12/17/24 11:29 Melatonin (Melatonin) 15 mg HSPRN PRN PO SLEEP 11/18/24 09:30 12/18/24 09:29 Metoprolol Succinate (TopROL XL) 12.5 mg DAILY PO 11/18/24 12:00 12/18/24 11:59 11/18/24 16:14 12.5 MG Metoprolol Succinate (TopROL XL) 12.5 mg DAILY PO 11/19/24 09:00 11/18/24 11:42 DC Miscellaneous Medication (Levothyroxine Sodium (Levothyroxine)) 50 mcg ACBKFST PO 11/19/24 07:30 11/18/24 09:34 DC Ondansetron HCl (zoFRAN 4MG INJ) 4 mg Q6H PRN IV NAUSEA/VOMITING 11/17/24 11:00 12/17/24 10:59 Polyethylene Glycol (MIRalax 3350 17 GM POWD.PACK) 17 gm DAILY PO 11/18/24 12:30 12/18/24 12:29 11/18/24 12:31 17 GM Polyethylene Glycol (MIRalax 3350 17 GM POWD.PACK) 17 gm DAILY PO 11/19/24 09:00 11/18/24 12:14 DC Potassium Chloride 100 ml @ 100 mls/hr AD PRN IV POTASSIUM PROTOCOL 11/17/24 11:30 12/17/24 11:29 Potassium Chloride (K-Dur/Klor-Con 20meq) 20 meq AD PRN PO POTASSIUM PROTOCOL 11/17/24 11:30 12/17/24 11:29 Potassium Chloride (KCl 10% Elixir 20meq/15ml) 20 meq AD PRN PO POTASSIUM PROTOCOL 11/17/24 11:30 12/17/24 11:29 Ropinirole HCl (REquip) 1 mg BID PO 11/18/24 21:00 12/18/24 20:59 11/18/24 21:24 1 MG Tizanidine HCl (Tizanidine HCl) 2 mg HS PO 11/18/24 21:00 12/18/24 20:59 11/18/24 21:24 2 MG DIAGNOSTICS / RADIOLOGY: [ ] ASSESSMENT: Unstable claudication of left lower extremity Hypertension Dyslipidemia Hypothyroidism Severe peripheral vascular disease Acute kidney injury Acute on chronic diastolic heart failure with preserved left ventricular ejection fraction of 55-60% per echocardiogram on July, history of Abdominal Aortic aneurysm PLAN: cath scheduled this AM Heparin drip protocol prn meds for pain, fever placed on statin therapy Cardiovascular: Cardiology consult, will follow recommendations Follow hemodynamics Vital signs per facility protocol Kidneys & Electrolytes: Avoid nephrotoxic medications to the extent possible Monitor electrolytes and replace as needed Medications to be dosed according to renal function Avoid contrast if possible Hematology & Coagulation: Monitor for s/s of bleeding Monitor hemoglobin, coagulation studies as needed Keep Hgb >7 Transfuse 1 unit PRBC for Hgb <7 Transfuse 1 pack of platelets for platelets < 20,000 Prophylaxis: Continue GI ATTESTATION BY PHYSICIAN I have seen and examined the patient. I reviewed the documentation, medical decision making, and treatment plan as noted by the resident provider above. I agree with the findings and plan of care. Hilda Vargas MD, PRIYA N Nov 19, 2024 09:18
[2024-11-19] MEDS ORDERED: HEParin-NS 1,000 UNIT/500 ML 1,500 ML IV ONE (10:30)
[2024-11-19] MEDS ORDERED: MIDAZOLAM HCL 1 MG/ML 2ML VIAL ONE ×3 (10:30→14:01)
[2024-11-19] MEDS ORDERED: LIDOCAINE HCL 400MG/20ML VIAL ONE (10:30)
[2024-11-19] MEDS ORDERED: IODIXANOL 320 MG/ML 100 ML VIAL ONE ×2 (10:30→13:50)
[2024-11-19] MEDS ORDERED: HEParin 10,000 UNIT/10ML (1,000 UNIT/ML) VIAL ONE (10:30)
[2024-11-19] MEDS ORDERED: FENTanyl CITRate PF 50 MCG/1 ML 2ML VIAL ONE ×2 (10:30→14:01)
--- NOTE | 2024-11-19 10:30 | NUR ---
PT TAKEN FOR PROCEDURE
[2024-11-19] MEDS ORDERED: NITROGLYCERIN 50MG VIAL ONE (10:31)
[2024-11-19] MEDS ORDERED: ASPIRIN 81MG CHEW TAB ONE (12:20)
[2024-11-19] MEDS ORDERED: cloPIDOgrel 300MG TAB ONE (12:20)
[2024-11-19] MEDS ORDERED: IOHEXOL-350 50ML VIAL IV ONE (12:59)
[2024-11-19] MEDS ORDERED: HEParin-NS 1,000 UNIT/500 ML 500 ML IV ONE (13:04)
[2024-11-19] MEDS ORDERED: EPTIFIBATIDE 2 MG/ML 10 ML VIAL IVP ONE (13:38)
--- NOTE | 2024-11-19 14:25 | PRN ---
PERIPHERAL ANGIOGRAM REPORT Date: 11/19/2024 Brook Mcwilliams MD Indication: Resting claudication and h/o severe PAD PROCEDURE: Moderate sedation Ultrasound-guided right common femoral arterial access Right ileal femoral angiography Catheter placement in the left SFA Catheter placement in the popliteal artery Selective left lower extremity angiogram with runoff Status post IVUS of the left SFA, and popliteal common anterior tibial artery Status post successful IVUS guided MEDICAL STAFFING COORDINATOR/self expanding stent to the mid-distal right SFA (6 mm self expanding stent) Status post successful IVUS guided aspiration thrombectomy and MEDICAL STAFFING COORDINATOR of the left proximal YOVANA Perclose hemostasis of the right common femoral artery Following informed consent the patient was taken to the laborer demolition in a fasting state of condition where she was draped in sterilized in the usual fashion. Access was obtained via the right common femoral artery under ultrasound guidan ce with the 1st passed puncture. We placed a six Dutch arterial sheath in the right common femoral artery which was then aspirated and flushed and then we performed a limited right iliofemoral angiography delineate are no landmarks. We then advanced an 035 wire into the ascending aorta and fluoroscopic guidance and we then advanced a five Dutch omni catheter into the distal abdominal aorta and performed an abdominal aortogram. We then redirected the Omni catheter into the left SFA and performed left lower extremity angiogram with runoff under DSA images. Following review of the images decision was made to intervene on the left SFA and possibly the YOVANA. We exchanged the short six Dutch arterial sheath for a 45 cm six Dutch sheath which was advanced into the proximal left SFA under fluoroscopic guidance. We then advanced an 014 wire down to the distal YOVANA under fluoroscopic guidance and we proceeded with IVUS imaging of the SFA popliteal and proximal YOVANA. We then proceeded with MEDICAL STAFFING COORDINATOR using a 6 x 80 mm shockwave balloon which was inflated from the distal SFA to the mid SFA completing a total of 20 lithotripsy sections between two different catheters. Repeat angiographic imaging following shockwave therapy noted thrombus embolization to the TP trunk and YOVANA and residual 80% mid to distal SFA lesion. We deployed a 5 x 135 mm self expanding stent from the popliteal artery ext ending into the distal SFA. We then deployed a 6 x 40 mm self expanding stent in the mid SFA. We post dilated the stent using a 6 x 80 mm noncompliant balloon which was inflated to 14 BENNETT serially. Following balloon inflation we noted clot embolization down the YOVANA and TP trunk. We wired the peroneal artery using the run-through wire and following wire and we noted resolution of the TP trunk and peroneal thrombus. We redirected to the run-through wire into the YOVANA and advanced it distally into the pedal arch and we proceeded with aspiration thrombectomy using a six Dutch penumbra catheter for several antegrade and retrograde passes within the proximal YOVANA. We noted mild improvement of flow and we proceeded with MEDICAL STAFFING COORDINATOR using a 2 x 200 mm compliant balloon which was inflated to nominal pressures within the prox to mid YOVANA for a total of 1 minute. Final angiographic imaging were noted shinto of three-vessel runoff with mild residual YOVANA clot burden. All wires and catheters removed from the body and the six Dutch arterial sheath was removed under a Perclose with patent hemostasis. Patient tolerated procedure well with no postprocedural complication was transferred to laborer demolition holding in stable condition FINDINGS: Abdominal aorta: Calcified with a small aneurysmal segment and patent LEFT: Common iliac is diffusely calcified and patent Internal iliac is diffusely calcified and patent External iliac diffusely calcified and patent Common femoral artery with diffuse 30-40% stenosis SFA: Ostial 40-50% stenosis followed by 100% in stent restenosis within the mid SFA Popliteal artery has mild diffuse disease Anterior tibial artery has proximal 80% diffuse stenosis with sluggish flow to the foot Tibioperoneal trunk was mild diffuse disease and patent Peroneal artery is patent to the foot Posterior tibial artery is patent with mild diffuse disease Pedal arch is incomplete RIGHT: Common iliac is diffusely calcified and patent Internal iliac is diffusely calcified and patent External iliac diffusely calcified and patent Common femoral artery with diffuse 30-40% stenosis CONCLUSION: Status post successful IVUS guided, IVL (6 mm shockwave) MEDICAL STAFFING COORDINATOR/self expanding stent to the LEFT mid to distal SFA (6 mm self expanding stent) Status post successful IVUS guided, aspiration thrombectomy, MEDICAL STAFFING COORDINATOR (2 mm) of the proximal LEFT YOVANA Recommendations: Patient required damped (aspirin 81 mg daily/Plavix 75 mg q.day) for total of six months in addition to high-intensity statin therapy and aggressive lifestyle and risk factor modification Patient should be initiated on low-dose Xarelto 2.5 mg b.i.d. prior to discharge BROOK Hurtado MD, MD Nov 19, 2024 14:25
[2024-11-19] MEDS ORDERED: GLUCAGON 1MG KIT 1 MG ML IM PRN (14:30)
[2024-11-19] MEDS ORDERED: DEXTROSE 50%-WATER 50 ML DISP.SYRIN IV PRN (14:30)
--- NOTE | 2024-11-19 14:40 | NUR ---
PT RETURN FROM MAINTENANCE SUPERVISOR 2ND SHIFT PROCEDURE. STABLE VITAL SIGNS DENIES ANY PAIN VERBALIZED UNDERSTANDING OF INSTRUCTIONS OF LAYING FLAT FOR 6 HOURS.
[2024-11-19] MEDS: 0.9%NACL 1000ML 1,000 ML IV SCH (14:57)
[2024-11-20] VITALS: BP 133/58; PULSE 65; RESP 18; TEMP 97.4
[2024-11-20 04:00] VITALS: BP 131/62; PULSE 76; RESP 18; TEMP 97.9
[2024-11-20 05:19] LABS: BASOPHILS # (AUTO) 0.04 K/uL (0.00-0.20); BASOPHILS % (AUTO) 0.6 % (0.0-5.0); EOSINOPHILS # (AUTO) 0.18 K/uL (0.00-0.70); EOSINOPHILS % (AUTO) 2.5 % (0.0-8.0); HEMATOCRIT 34.1 % (36-48); IMMATURE GRANULOCYTE ABSOLUTE 0.02 K/uL (0-1); LYMPHOCYTES # (AUTO) 0.7 K/uL (1.0-4.8); MEAN CORPUSCULAR HEMOGLOBIN 31.6 pg (27.0-33.0); MEAN CORPUSCULAR HGB CONC 33.4 g/dL (32.0-36.0); MEAN CORPUSCULAR VOLUME 94.5 fL (79-99); MONOCYTES # (AUTO) 0.7 K/uL (0.1-1.0); MONOCYTES % (AUTO) 9.5 % (3.0-13.0); NEUTROPHILS # (AUTO) 5.5 K/uL (1.8-7.7); NEUTROPHILS % (AUTO) 77.1 % (40.0-77.0); PLATELET COUNT (AUTO) 146 K/uL (130-400); RED BLOOD CELL COUNT(AUTO) 3.61 MIL/uL (4.00-5.50); RED CELL DISTRIBUTION WIDTH 13.7 % (11.0-15.5); WHITE BLOOD COUNT (AUTO) 7.1 K/uL (4.8-10.8)
[2024-11-20 05:21] LABS: POTASSIUM 3.6 mmol/L (3.5-5.1)
[2024-11-20] MEDS: PoTASSium chloRIDE 20MEQ ER 20 MEQ ERTAB PO PRN (07:00)
[2024-11-20 08:00] VITALS: BP 147/74; PULSE 72; RESP 17; TEMP 99; O2SAT 97
[2024-11-20] MEDS: cloPIDOgrel 75MG TAB PO SCH (08:38)
[2024-11-20] MEDS: ASPIRIN 81MG CHEW TAB PO SCH (08:38)
[2024-11-20 11:28] VITALS: BP 151/70; PULSE 80; RESP 16; TEMP 98
--- NOTE | 2024-11-20 14:43 | PN ---
[facility] CARDIOLOGY PROGRESS NOTE Date Patient Seen: Nov 20, 2024 Time of Visit: 14:36 Problem List: Unstable claudication of left lower extremity Hypertension Dyslipidemia Hypothyroidism Severe peripheral vascular disease Acute kidney injury Acute on chronic diastolic heart failure with preserved left ventricular ejection fraction of 55-60% per echocardiogram on July, history of Abdominal Aortic aneurysm Interval History: No acute events overnight , the patient underwent a peripheral angiogram yesterday and is Status post successful IVUS guided, IVL (6 mm shockwave) SALES SUPPORT ASSISTANT/self expanding stent to the LEFT mid to distal SFA (6 mm self expanding stent) Status post successful IVUS guided, aspiration thrombectomy, SALES SUPPORT ASSISTANT (2 mm) of the proximal LEFT YOVANA Physical Examination: GENERAL: [No acute distress.] HEAD: [Normal with no signs of head trauma.] NECK Normal carotid upstrokes without bruits.] LUNGS: [Clear breath sounds bilaterally. On room air. No wheezes, or rhonchi.] HEART: [Normal rate and rhythm. Normal S1 and S2 without murmurs, gallop or rub.] VASC: [Peripheral pulses +2 bilateral radial. diminished DP. ABD: soft nontender EXT: [No cyanosis or edema.] SKIN: warm, dry NEURO: [Awake, alert, and oriented x3. Laboratory: [ ] Hematology Labs: Test 11/20/24 04:32 Range/Units White Blood Count 7.1 4.8-10.8 K/uL Red Blood Count 3.61 L 4.00-5.50 MIL/uL Hemoglobin 11.4 L 12.0-16.0 g/dL Hematocrit 34.1 L 36-48 % Mean Corpuscular Volume 94.5 79-99 fL Mean Corpuscular Hemoglobin 31.6 27.0-33.0 pg Mean Corpuscular Hemoglobin Concent 33.4 32.0-36.0 g/dL Red Cell Distribution Width 13.7 11.0-15.5 % Platelet Count 146 # 130-400 K/uL Mean Platelet Volume 11.7 H 7.5-10.5 fL Immature Granulocyte % (Auto) 0.3 0-1 % Neutrophils (%) (Auto) 77.1 H 40.0-77.0 % Lymphocytes (%) (Auto) 10.0 L 21.0-51.0 % Monocytes (%) (Auto) 9.5 3.0-13.0 % Eosinophils (%) (Auto) 2.5 0.0-8.0 % Basophils (%) (Auto) 0.6 0.0-5.0 % Neutrophils # (Auto) 5.5 1.8-7.7 K/uL Lymphocytes # (Auto) 0.7 L 1.0-4.8 K/uL Monocytes # (Auto) 0.7 0.1-1.0 K/uL Eosinophils # (Auto) 0.18 0.00-0.70 K/uL Basophils # (Auto) 0.04 0.00-0.20 K/uL Absolute Immature Granulocyte (auto 0.02 0-1 K/uL Nucleated Red Blood Cells 0.0 0.0-0.19 % White Cell Morphology Comment See comments Chemistry Labs: Test 11/20/24 04:32 Range/Units Sodium Level 140 136-145 mmol/L Potassium Level 3.6 3.5-5.1 mmol/L Chloride Level 104 101-111 mmol/L Carbon Dioxide Level 26 21-32 mmol/L Blood Urea Nitrogen 27 H 7-18 mg/dL Creatinine 1.0 0.5-1.0 mg/dL Glomerular Filtration Rate Calc 55 >90 mL/min Random Glucose 124 H 70-105 mg/dL Total Calcium 9.1 8.5-10.1 mg/dL Coagulation Labs: Test 11/19/24 01:34 Range/Units Activated Partial Thromboplast Time 65.5 H 26.3-35.5 SEC Diagnostics / Radiology: [Copy/Paste Echos/Imaging Report here] Impression and Plan: Unstable claudication of left lower extremity Hypertension Dyslipidemia Hypothyroidism Severe peripheral vascular disease Acute kidney injury Acute on chronic diastolic heart failure with preserved left ventricular ejection fraction of 55-60% per echocardiogram on July, history of Abdominal Aortic aneurysm #PAD Left lower extremity arterial doppler 11/16/2024 focal occlusion in the distal superficial femoral artery with severely decreased inflow to the remainder of the left lower extremity. 02/27/2024 abdominal aortogram with 100% occlusion of distal L-SFA and left popliteal artery in addition to a new areas of stenosis of the ostial and proximal left SFA status post laser atherectomy and DCB to left SFA and left popliteal artery with 2V runoff noted to the left foot and patent R-SFA popliteal artery with 2V runoff 03/20/2023 atherectomy and DCB to 99% L-popliteal InStent restenosis with distal 75% stenosis. [id number] DCB angioplasty to recurrent stenosis of the R-SFA and popliteal. Status post successful IVUS guided, IVL (6 mm shockwave) SALES SUPPORT ASSISTANT/self expanding stent to the LEFT mid to distal SFA (6 mm self expanding stent) 11-19-23 Status post successful IVUS guided, aspiration thrombectomy, SALES SUPPORT ASSISTANT (2 mm) of the proximal LEFT YOVANA ( 11-19-23 ) Patient required DAPT (aspirin 81 mg daily/Plavix 75 mg q.day) for total of six months in addition to high-intensity statin therapy and aggressive lifestyle and risk factor modification Patient should be initiated on low-dose Xarelto 2.5 mg b.i.d. 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 July 05, 2023 left common and external iliac vein stent placement with a Viajalatronic 14 x 120 mm venous self expanding stent. Hypertension Lexiscan Cardiolite 01/22/2023 no for ischemia 2D echocardiogram August 07, 2024 left ventricular ejection fraction 50-55% with moderate MR LDL 119 Thank you for this consult cardiology will sign off at this time , the patient will follow up at clinic in 1-2 weeks after discharge. Daniel Mcwilliams MD ATTESTATION BY PHYSICIAN I have seen and examined the patient, reviewed the above documentation, participated in medical decision making, made necessary modifications, and agree with the treatment plan as documented by my mid-level provider above. MD MACARENA Zee JAMES R MD Nov 20, 2024 14:43
[2024-11-20] MEDS ORDERED: APIX2.5T PO (15:34)
--- NOTE | 2024-11-20 15:47 | DS ---
Discharge Summary Hospital Course Summary: The patient is an 84-year-old female with a significant past medical history of peripheral artery disease, including prior bypass surgery and stent placement in the left lower extremity, who presents with progressive claudication and resting pain in the left leg. Over the past2 weeks she has experienced worsening exertional leg pain, now accompanied by rest pain since last night. Vascular imaging study performed in the emergency department yesterday identified a high- grade arterial obstruction in the left lower extremity, although no complete occlusion was noted. The patient denies fever, chills, chest pain, dyspnea, or other systemic symptoms. She reports no signs of limb discoloration, ulceration, or open wounds. There is no history of recent trauma to the affected extremity. Her functional capacity has been limited by the severity of her symptoms, impacting her mobility and overall quality of life. Her past medical history is notable for hypertension, hyperlipidemia, May- Thurner syndrome, and symptomatic bradycardia, as well as moderate mitral regurg itation with a left ventricular ejection fraction of 50-55%, last assessed in August 07, 2024. She is allergic to MARCOS inhibitors and gabapentin. She has no history of tobacco alcohol or illicit drug use. On initial physical examination, the patient's left pedal pulse was not palpable, and the left foot was noted to be colder than the right lower extremity. Multiple varicosities and spider veins were observed on the left ankle, but there were no signs of acute ischemic changes such as cyanosis, ulceration, or gangrene. This presentation is consistent with unstable claudication due to progressive peripheral artery stenosis or thrombosis, warranting initiation of a heparin drip protocol and further evaluation by Cardiology for a catheterization. Patient tolerated the procedure well and is in a stable condition. Patient has been instructed to continue her home medications including [id number] mg, [id number] mg, atorvastatin 40 mg. Patient has also been prescribed Eliquis 2.5 mg b.i.d. Patient has been advised to follow up with her PCP in 3-5 days and with Cardiology in 1 week. Patient will be discharged home today. Utility Manager(s): Cardiology Procedure(s): Peripheral angiogram report: Status post successful IVUS guided, IV L (6 mm shockwave) FARE ENFORCEMENT OFFICER/self expanding stent to the left mid to distal SFA (6 mm self expanding stent) Status post successful IVUS guided, aspiration thrombectomy, FARE ENFORCEMENT OFFICER ( mm) of the proximal left YOVANA Assessment/Plan: ASSESSMENT: Unstable claudication of left lower extremity Hypertension Dyslipidemia Hypothyroidism Severe peripheral vascular disease Acute kidney injury Acute on chronic diastolic heart failure with preserved left ventricular ejection fraction of 55-60% per echocardiogram on July, history of Abdominal Aortic aneurysm Discharge Instructions: Follow up with PCP in 3-5 days Follow up with Cardiology in 1 week Home Medications: Active Scripts Furosemide (Furosemide) 40 Mg Tablet, 40 MG PO DAILY, #30 TAB Prov:RYLEE ESCOBAR MD 08/19/24 Losartan Potassium (Losartan Potassium) 50 Mg Tablet, 50 MG PO DAILY, #30 TAB Prov:RYLEE ESCOBAR MD 08/19/24 Reported Medications Polyethylene Glycol 3350 (Miralax) 17 Gram Powd.pack, 1 PACKET PO DAILY for constipation for 2 Days, #2 PACKET 0 Refills dissolve in water 11/18/24 Hydralazine HCl (Apresoline) 10 Mg Tab, 10 MG PO DAILYDINNER 11/18/24 Metoprolol Succinate (Metoprolol Succinate) 25 Mg Tab.er.24h, 12.5 MG PO DAILY 11/18/24 Fenofibrate Nanocrystallized (Fenofibrate) 48 Mg Tablet, 1 TAB PO DAILYDINNER for 30 Days, #30 TAB 0 Refills 11/18/24 Ropinirole HCl (Ropinirole HCl) 1 Mg Tablet, 1 TAB PO BID for 30 Days, #30 TAB 0 Refills 11/18/24 Melatonin (Melatonin) 5 Mg Tablet, 15 MG PO HSPRN PRN for SLEEP, TAB 08/15/24 Tizanidine HCl (Tizanidine HCl) 2 Mg Tablet, 2 MG PO HS, TAB 08/14/24 Cholecalciferol (Vitamin D3) 1,250 Mcg (20132 Unit) Cap, 89904 UNITS PO QWEEK, CAP Fridays08/14/24 Famotidine (Famotidine) 20 Mg Tablet, 20 MG PO DAILYDINNER, TAB 08/14/24 Aspirin (ASPIRIN 81 MG ECTAB) 81 Mg Ectab, 81 MG PO DAILYDINNER, TAB.EC 08/14/24 Amlodipine Besylate (Amlodipine Besylate) 10 Mg Tablet, 10 MG PO DAILY for 30 Days, #30 TAB 0 Refills 08/14/24 Isosorbide Mononitrate (Isosorbide Mononitrate) 20 Mg Tablet, 20 MG PO BID, TAB 08/14/24 Clopidogrel Bisulfate (Clopidogrel) 75 Mg Tablet, 75 MG PO PCBKFST, TAB 08/14/24 Atorvastatin Calcium (LIPITOR) 40 Mg Tablet, 40 MG PO PCBKFST, TAB 08/14/24 Pantoprazole Sodium (Pantoprazole Sodium) 40 Mg Granpkt.dr, 40 MG PO ACBKFST, PACK 08/14/24 Levothyroxine Sodium (Levothyroxine) 50 Mcg Capsule, 50 MCG PO ACBKFST, CAP 08/14/24 Discontinued Reported Medications Ropinirole HCl (Ropinirole HCl) 1 Mg Tablet, 1 MG PO ACBKFST, TAB 08/15/24 Polyethylene Glycol 8000 (Polyethylene Glycol) 100 % Powder, 500 GM MC DAILY, APPL 08/14/24 Bisoprolol Fumarate (Bisoprolol Fumarate) 5 Mg Tablet, 5 MG PO PCBKFST, TAB 08/14/24 Ropinirole HCl (Ropinirole HCl) 1 Mg Tablet, 1 MG PO HS, TAB 08/14/24 Pregabalin (Pregabalin) 50 Mg Capsule, 50 MG PO BIDAC, CAP 08/14/24 New Medications: Apixaban (Eliquis) 2.5 Mg Tablet 1 TAB PO BID for 30 Days, #60 TAB 0 Refills Continued Medications: Amlodipine Besylate (Amlodipine Besylate) 10 Mg Tablet 10 MG PO DAILY for 30 Days, #30 TAB 0 Refills Aspirin (Aspirin 81 Mg Ectab) 81 Mg Ectab 81 MG PO DAILYDINNER, TAB.EC Atorvastatin Calcium (Lipitor) 40 Mg Tablet 40 MG PO PCBKFST, TAB Cholecalciferol (Vitamin D3) 1,250 Mcg (14879 Unit) Cap 73623 UNITS PO QWEEK, CAP FRIDAYS Clopidogrel Bisulfate (Clopidogrel) 75 Mg Tablet 75 MG PO PCBKFST, TAB Famotidine (Famotidine) 20 Mg Tablet 20 MG PO DAILYDINNER, TAB Fenofibrate Nanocrystallized (Fenofibrate) 48 Mg Tablet 1 TAB PO DAILYDINNER for 30 Days, #30 TAB 0 Refills Furosemide (Furosemide) 40 Mg Tablet 40 MG PO DAILY, #30 TAB Hydralazine HCl (Apresoline) 10 Mg Tab 10 MG PO DAILYDINNER Isosorbide Mononitrate (Isosorbide Mononitrate) 20 Mg Tablet 20 MG PO BID, TAB Levothyroxine Sodium (Levothyroxine) 50 Mcg Capsule 50 MCG PO ACBKFST, CAP Losartan Potassium (Losartan Potassium) 50 Mg Tablet 50 MG PO DAILY, #30 TAB Melatonin (Melatonin) 5 Mg Tablet 15 MG PO HSPRN PRN for SLEEP, TAB Metoprolol Succinate (Metoprolol Succinate) 25 Mg Tab.er.24h 12.5 MG PO DAILY Pantoprazole Sodium (Pantoprazole Sodium) 40 Mg Granpkt.dr 40 MG PO ACBKFST, PACK Polyethylene Glycol 3350 (Miralax) 17 Gram Powd.pack 1 PACKET PO DAILY for constipation for 2 Days, #2 PACKET 0 Refills dissolve in water Ropinirole HCl (Ropinirole HCl) 1 Mg Tablet 1 TAB PO BID for 30 Days, #30 TAB 0 Refills Tizanidine HCl (Tizanidine HCl) 2 Mg Tablet 2 MG PO HS, TAB Time spent arranging discharge: 1-30 minutes ATTESTATION BY PHYSICIAN I have seen and examined the patient. I reviewed the documentation, medical decision making, and treatment plan as noted by the resident provider above. I agree with the findings and plan of care. Hilda Vargas MD, PRIYA N Nov 20, 2024 15:47
--- NOTE | 2024-11-20 17:33 | NUR ---
NOTE DISCHARGE INSTRUCTIONS GIVEN TO PATIENT. SHE STATED UNDERSTANDING. ALL QUESTIONS ANSWERED.
== END 2024-11-20 17:40 | disposition home or self-care (01) | DRG 270 ==
LOC: EDH 09:08 → EDHIP 10:47 → 3BH 23:37
PROVIDERS: ADMIT Hospitalist; ATTEND Hospitalist
PROC: B41F1ZZ Fluoroscopy of Right Lower Extremity Arteries using Low Osmolar Contrast (ICD-10-PCS; principal; 2024-11-19)
PROC: 04CQ3ZZ Extirpation of Matter from Left Anterior Tibial Artery, Percutaneous Approach (ICD-10-PCS; 2024-11-19)
PROC: 04CS3ZZ Extirpation of Matter from Left Posterior Tibial Artery, Percutaneous Approach (ICD-10-PCS; 2024-11-19)
PROC: 04FQ3ZZ Fragmentation of Left Anterior Tibial Artery, Percutaneous Approach (ICD-10-PCS; 2024-11-19)
PROC: 047K3DZ Dilation of Right Femoral Artery with Intraluminal Device, Percutaneous Approach (ICD-10-PCS; 2024-11-19)
PROC: B4101ZZ Fluoroscopy of Abdominal Aorta using Low Osmolar Contrast (ICD-10-PCS; 2024-11-19)
PROC: B44GZZ3 Ultrasonography of Left Lower Extremity Arteries, Intravascular (ICD-10-PCS; 2024-11-19)
PROC: B44FZZ3 Ultrasonography of Right Lower Extremity Arteries, Intravascular (ICD-10-PCS; 2024-11-19)
DX: I73.9 Peripheral vascular disease, unspecified (principal); I50.33 Acute on chronic diastolic (congestive) heart failure; N17.9 Acute kidney failure, unspecified; I11.0 Hypertensive heart disease with heart failure; M79.605 Pain in left leg; E78.5 Hyperlipidemia, unspecified; E03.9 Hypothyroidism, unspecified; I25.10 Atherosclerotic heart disease of native coronary artery without angina pectoris; Z95.1 Presence of aortocoronary bypass graft; Z90.710 Acquired absence of both cervix and uterus; Z88.8 Allergy status to other drugs, medicaments and biological substances; Z86.79 Personal history of other diseases of the circulatory system; Z79.82 Long term (current) use of aspirin; Z79.899 Other long term (current) drug therapy; Z79.01 Long term (current) use of anticoagulants
CPT/HCPCS: 36415; 37184; 37185; 37228; 37252; 37253; 75716; 80048; 80061; 85025; 85610; 85730; 96374; 99156; 99157; 99285; C1760; C1893; C1894; C9765; G0378; J0360; J1327; J1644; J2250; J3010; J3490; Q9967; C1725; C1753; C1769; C1876; C1887; C2623

== ENCOUNTER 2024-11-26 08:00 | Day surgery (SDC) | payer MEDICARE ==
[~2024-11-26] VITALS: Ht 160 cm; Wt 77.8 kg
[~2024-11-26 08:00] MED LIST changes: +APIX2.5T PO; -BISO5TAB19 PO; +FENO48TA10 PO; +HYDR10 PO; +METO-408 PO; +POLY17PO4 PO; -POLY500P31 MC; -PREG50CA64 PO
[2024-11-26 08:35] VITALS: BP 196/83; PULSE 61; RESP 16; TEMP 97.2
[2024-11-26] MEDS: 0.9%NACL 1000ML 1,000 ML IV SCH (09:01)
[2024-11-26] MEDS ORDERED: IOHEXOL 350 MG/ML 100ML INFUS..BTL IV ONE (11:56)
--- NOTE | 2024-11-26 12:00 | NUR ---
CT: SENT TO CT VIA BED, PT AAA X3. Addendum: 11/26/24 at 1219 by RUPESH OCONNOR RN RN TAKEN VIA WHEELCHAIR.
[2024-11-26] MEDS ORDERED: metoPROLOL tartRATE 1 MG/ML 5ML VIAL IV ONE (12:05)
[2024-11-26 12:25] VITALS: BP 161/66; PULSE 67; RESP 16; TEMP 96.8
[2024-11-26 13:00] VITALS: BP 143/62; PULSE 55; RESP 16
[2024-11-26 13:30] VITALS: BP 172/74; PULSE 62; RESP 17
[2024-11-26 13:59] VITALS: BP 149/61; PULSE 59; RESP 16
--- NOTE | 2024-11-26 15:39 | HMCIMG ---
CT CARDIAC ANGIO W/CONT. CCTA HISTORY: Congestive heart failure COMPARISON: None TECHNIQUE: Multiple sequential axial images of the chest were obtained along with the CT angiogram of the chest study. Patient was given 100 cc of Omnipaque through intravenous route. FINDINGS: There is no evidence of pulmonary nodule or parenchymal disease. No pleural effusion or pericardial effusion is seen. There is no evidence of pneumothorax. Ascending thoracic aorta measures 3.8 x 3.9 cm. There are normal size mediastinal and hilar lymph nodes. The heart is not enlarged. Coronary arterial calcifications are seen. Degenerative changes of the thoracolumbar spine are present. IMPRESSION: 1. No evidence of pulmonary nodule or effusion is seen. Please see CT angiogram report of coronary arteries.
--- NOTE | 2024-12-01 13:10 | CARDIOLOGY ---
RAD REPORT: [facility] CT ANGIO RADIOLOGY REPORT: CORONARY CT ANGIOGRAPHY DATE: Dec 01, 2024 QUALITY: Excellent CLINICAL HISTORY AND INDICATION: [ coronary artery bypass graft patency ] TECHNIQUE: After obtaining a preliminary broadcast maintenance technician image, contrast imaging performed on an [employer] [id number] scanner. A dedicated, limited window, coronary imaging protocol was used, with single breath-hold, retrospective ECG gating, and automated arrhythmia rejection. 100 cc of low osmolar contrast agent: Omnipaque 350 was delivered via a 18-gauge IV catheter in the right antecubital fossa, using a power injector and followed by 60 cc of normal saline bolus as a chaser. Collimated images were reformatted at 0.5 mm intervals, and sent to an offline independent workstation for interpretation, using 3D anatomic reconstructions: Curved multiplanar reconstructions, maximum intensity projections, and multiplan ar imaging. 10 mg IV metoprolol was administered prior to scanning. 0.8 mg SL nitroglycerin was given. CORONARY ARTERY DESCRIPTIONS: The coronary arteries arise in normal position. Left main coronary artery: Normal caliber vessel that bifurcates into the LAD and LCx. No stenosis. Left anterior descending coronary artery: Normal caliber vessel and gives rise to diagonal and septal branches. Severe proximal to mid LAD stenosis. Left circumflex coronary artery: Normal caliber, dominant and gives rise to a large OM branch. Severe proximal to mid LCx stenosis. Right coronary artery: Small, non-dominant vessel. Patent SWANSON to LAD. Patent SVG to L PDA. Thoracic Aorta: Normal diameter. Rukhsana Mcwilliams MD Cardiovascular Disease [facility] RUKHSANA MCWILLIAMS MD Dec 01, 2024 13:10
== END 2024-11-26 14:01 | disposition home or self-care (01) ==
LOC: EDSTATUS 08:00 → DAH 08:00
PROVIDERS: ATTEND Internal Medicine Cardiovascular Disease
DX: I11.0 Hypertensive heart disease with heart failure (principal); I50.31 Acute diastolic (congestive) heart failure; I25.110 Atherosclerotic heart disease of native coronary artery with unstable angina pectoris; E78.5 Hyperlipidemia, unspecified; I48.0 Paroxysmal atrial fibrillation; I87.2 Venous insufficiency (chronic) (peripheral); I73.9 Peripheral vascular disease, unspecified; Z90.710 Acquired absence of both cervix and uterus; Z90.89 Acquired absence of other organs; Z98.890 Other specified postprocedural states; Z88.8 Allergy status to other drugs, medicaments and biological substances; Z95.820 Peripheral vascular angioplasty status with implants and grafts; Z79.01 Long term (current) use of anticoagulants; Z79.899 Other long term (current) drug therapy
CPT/HCPCS: 75574; J3490; Q9967; A4215; A4222; A4221; A4663; A4216; A4606; A4223 ×3; 96360; 96361

== ENCOUNTER → 2024-12-12 | Outpatient (CLI) | payer MEDICARE ==
--- NOTE | 2024-12-14 07:59 | HMCSR ---
APPROVED REPORT Laterality: Bilateral Indications Claudication: , PAD VELOCITY AND DOPPLER WAVEFORM ANALYSIS TRIAL JUSTICE (R) 251.2cm/sec, Biphasic, Moderate > 50%TRIAL JUSTICE (L) 312.7cm/sec, Biphasic, Severe > 75% Prof Fem Art. (R) 92.3cm/sec, Biphasic, Prof Fem Art. (L) 210.2cm/sec, Biphasic, Moderate > 50% Fem Art Prox. (R) 239.3cm/sec, Biphasic, Moderate > 50%Fem Art Prox. (L) 161.5cm/sec, Biphasic, Fem Art Mid. (R) 212.3cm/sec, Biphasic, Moderate > 50%Fem Art Mid. (L) 185.4cm/sec, Biphasic, Fem Art Dist (R) 107.7cm/sec, Biphasic, Fem Art Dist. (L) 60.6cm/sec, Biphasic, Pop Art(AK) (R) 168.1cm/sec, Biphasic, Pop Art (AK) (L) 103.2cm/sec, Biphasic, Pop Art (Fossa)(R) 63.5cm/sec, Biphasic, Pop Art (Fossa) (L) 89.7cm/sec, Biphasic, Pop Art(BK) (R) 166.2cm/sec, Biphasic, Pop Art (BK) (L) 58.3cm/sec, Biphasic, WAREHOUSE DRIVER Prox. (R) 61.4cm/sec, Biphasic, WAREHOUSE DRIVER Prox. (L) 71.1cm/sec, Biphasic, WAREHOUSE DRIVER Mid. (R) 53.1cm/sec, Biphasic, WAREHOUSE DRIVER Mid. (L) 44.2cm/sec, Biphasic, WAREHOUSE DRIVER Dist. (R) 38.0cm/sec, Biphasic, WAREHOUSE DRIVER Dist. (L) 44.9cm/sec, Biphasic, Per Art Prox. (R) 62.1cm/sec, Biphasic, Per Art Prox. (L) 101.4cm/sec, Biphasic, Per Art Mid. (R) 66.9cm/sec, Biphasic, Per Art Mid. (L) 61.0cm/sec, Biphasic, Per Art Dist. (R) 44.2cm/sec, Biphasic, Per Art Dist. (L) 59.2cm/sec, Biphasic, YOVANA Prox. (R) 168.4cm/sec, Biphasic, YOVANA Prox. (L) 54.7cm/sec, Biphasic, YOVANA Mid. (R) cm/sec, Occluded Occluded YOVANA Mid. (L) cm/sec, Occluded, Occluded YOVANA Dist. (R) cm/sec, Occluded, Occluded YOVANA Dist. (L) cm/sec, Occluded, Occluded Technologist Impression Velocities are suggestive of >50% stenosis in the Right TRIAL JUSTICE, proximal SFA and mid SFA. Occlusion of the Right mid to distal YOVANA. Velocities are suggestive of >75% stenosis in the LeftCFA. Velocities are suggestive of >50% stenosis in the Left proximal DFA. Occlusion of the Left mid to distal YOVANA. Conclusion Severe bilateral infrapopliteal PID Severe stenosis left common femoral artery greater than 75% Moderate-severe stenosis of right common femoral artery 51-75% and right SFA at 51-75% Conclusion Severe bilateral infrapopliteal PID Severe stenosis left common femoral artery greater than 75% Moderate-severe stenosis of right common femoral artery 51-75% and right SFA at 51-75%
== END | disposition home or self-care (01) ==
LOC: SHCH 09:30
PROVIDERS: ATTEND Internal Medicine Cardiovascular Disease
DX: I70.208 Unspecified atherosclerosis of native arteries of extremities, other extremity (principal)
CPT/HCPCS: 93925

== ENCOUNTER → 2024-12-14 | Outpatient (CLI) | payer MEDICARE ==
[2024-12-14 16:36] LABS: CREATININE 1.3 mg/dL (0.5-1.0); POTASSIUM 4.6 mmol/L (3.5-5.1)
== END | disposition home or self-care (01) ==
LOC: LAB 11:41
PROVIDERS: ATTEND Internal Medicine Cardiovascular Disease
DX: I50.21 Acute systolic (congestive) heart failure (principal)
CPT/HCPCS: 36415; 80048; 83880

== ENCOUNTER → 2025-02-16 | Outpatient (CLI) | payer MEDICARE | END | disposition home or self-care (01) | LOC: SHCH 15:09 | PROVIDERS: ATTEND Internal Medicine Cardiovascular Disease | DX: I87.2 Venous insufficiency (chronic) (peripheral) (principal); I87.1 Compression of vein | CPT/HCPCS: 93925 ==

== ENCOUNTER → 2025-04-21 | Outpatient (CLI) | payer MEDICARE ==
[~2025-04-21] MED LIST changes: +BUME1TAB6 PO; +CLOP-31 PO; -FURO40TA5 PO; -ISOS-58 PO; +LEVO-70 PO; -LEVO50CA4 PO; +LEVO50CA5 PO; +TRAM-543 PO
--- NOTE | 2025-04-21 16:07 | HMCIMG ---
EXAM: LUMBAR SPINE 2-3VWS REASON: SPONDYLOSIS W/O MYELOPATHY OR RADICULOPATHY. COMPARISON: None. TECHNIQUE: 3 views of the lumbar spine were obtained. FINDINGS: There is 28 degree dextroscoliosis of the upper lumbar spine epicentered at L2. There is marked interspace narrowing at L5-S1. There is moderate to marked narrowing at T12, L1 and L2. Vertebral body alignment appears normal on the lateral view. There are marked degenerative changes of facets L3-S1. There are no compression fractures. Is constipation the aorta without evidence of aneurysm. IMPRESSION: 1. 28 degree dextroscoliosis of the lumbar spine epicentered at L2, there are marked associated degenerative changes. 2. No acute finding.
== END | disposition home or self-care (01) ==
LOC: RAH 09:45
PROVIDERS: ATTEND Pain Medicine Interventional Pain Medicine
DX: M47.817 Spondylosis without myelopathy or radiculopathy, lumbosacral region (principal); M41.86 Other forms of scoliosis, lumbar region; M48.05 Spinal stenosis, thoracolumbar region; M48.07 Spinal stenosis, lumbosacral region
CPT/HCPCS: 72100